=== PATIENT | male | born 1965 | race Caucasian/White ===

== ENCOUNTER 2019-04-14 19:17 | Emergency (ER) | payer BC ==
--- OUTSIDE RECORDS SUMMARY | 2019-04-14 19:33 | XMS REPORT | Continuity of Care Document ---
:1965 Author Organization Interface Problems Problem Status Onset Classification Date Comments Source Date Reported HARDWARE Active 08/12/20 [facility] INFECTION 16 [place] POST OP WOUND Active 07/12/20 [facility] INFECTION [place],[facility] Medical [place] POST OP FEVER Active 07/03/20 [facility] 16 [place] POSTOP WOUND Active 06/25/20 [facility] INFECTION, Medical SEPSIS, [facility] BACK PAIN Active 11/09/19 [facility] 01 [place] Final: Other 04/25/2016 [facility]o intervertebral and Spine disc degeneration, lumbar region Final: Other 04/25/2016 Ortho intervertebral and Spine disc displacement, lumbar region Depression Resolved Problem 08/17/2016 [facility] Hyperlipemia Resolved Problem 08/17/2016 [facility] Hypertension Resolved Problem 08/17/2016 [facility] Final: Illness, 08/17/2016 Ortho unspecified and Spine OTHER POSTOP Active [facility] INFECTION [place] FEVER NOS Active [facility] SEPSIS DUE TO Active [facility] ST[facility]HYLOCOCCUS [facility] ILLNESS, [facility] Medication Details Route Status Patient Ordering Order Source Instructions Provider Date methocarbamol 500 1,000 mg=2 tab, Active 08/14[facility] Ortho mg oral tablet PO, Q8H, 0 2015 and Refill(s) Spine gabapentin 300 MG 600 mg=2 cap, Active 08/14[facility] Ortho Oral Capsule PO, Q8H, 0 2015 and Refill(s) Spine Docusate Sodium 100 mg=1 cap, Active 08/14[facility] Ortho 100 MG Oral PO, BID, 0 2015 and Capsule Refill(s) Spine cyclobenzaprine 10 mg=1 tab, PO, Active 08/14[facility] Ortho 10 mg oral tablet TID, PRN as 2015 and needed for Spine muscle spasm, 0 Refill(s) DAPTOmycin 500 mg 600 mg, IV, Active 08/14[facility] Ortho intravenous Q24H, end date 2015 and injection to be determined Spine by CRP and operative findings. At least two weeks., X 14 day, # 1 bag, 0 Refill(s), other buPROPion 300 300 mg=1 tab, Active 08/14/ Ortho mg/24 hours oral PO, Daily, 0 2015 and extended release Refill(s) Spine tablet senna 8.6 mg oral 17.2 mg=2 tab, Active 08/14/ [facility] tablet PO, Bedtime, 0 2015 and Refill(s) Spine meropenem 1 g 1 gm, IV, Q8H, Active Ortho intravenous end date TBD 2016 and injection based on CRP Spine trend and operative findings. At least two additional weeks., X 14 day, # 1 bag, 0 Refill(s), other bisacodyl 5 mg 10 mg=2 tab, PO, Active Ortho oral enteric Daily, 0 2015 and coated tablet Refill(s) Spine bisacodyl 10 mg 10 mg=1 supp, Active 08/14/ Ortho rectal ME, Daily, PRN 2016 and suppository Constipation, 0 Spine Refill(s) POLYETHYLENE 17 gm, PO, Active Ortho GLYCOL 3350 Daily, 0 2015 and Refill(s) Spine aripiprazole 5 MG 2.5 mg=0.5 tab, Active [facility] Oral Tablet PO, Bedtime, 0 2015 and [Abilify] Refill(s) Spine Acetaminophen 325 2 tab, PO, Q4H, Active 08/14/ Ortho MG / Oxycodone PRN Pain Score 2016 and Hydrochloride 10 4-6, 0 Refill(s) Spine MG Oral Tablet [Percocet 10/325] hydromorphone 2 0.5 mg=0.25 mL, Active 08/14/ [facility] mg/mL injectable IVP, Q3H, PRN 2016 and solution Pain Score 7-10, Spine only if not controlled by orals, 0 Refill(s) hydromorphone 2 4 mg=2 tab, PO, Active 08/14/ [facility] mg oral tablet Q3H, PRN Pain 2016 and Score 7-10, 0 Spine Refill(s) ondansetron 2 4 mg=2 mL, IVP, Active 08/14/ [facility] mg/mL injectable Q6H, PRN as 2016 and solution needed for Spine nausea/vomiting, 0 Refill(s) Relistor 12 mg, Route: No Longer Ortho SUB-Q, Drug Active 2015 and form: INJ, Spine Daily, Dosing Weight 97, kg, Start date: 08/14/16 9:00:00 CDT, Duration: 30 day, Stop date: 09/12/16 9:00:00 DOG DAY CARE ATTENDANT heparin sodium, 5,000 unit, 1 No Longer Ortho porcine 2500 mL, Route: Active 2016 and UNT/ML Injectable SUB-Q, Drug Spine Solution form: INJ, Q8H, Dosing Weight 97, kg, Start date: 08/13/16 16:00:00 CDT, Duration: 30 day, Stop date: 09/12/16 8:00:00 CSTNotes: porcine heparin Dilaudid 4 mg, 2 tab, No Longer Ortho Route: PO, Drug Active 2015 and form: TAB, Q3H, Spine Dosing Weight 97, kg, PRN Pain Score 7-10, Start date: 08/13/16 9:32:00 CDT, Stop date: 08/16/16 9:31:00 CDTNotes: (Same as: Dilaudid) buPROPion 300 mg, 1 tab, No Longer Ortho Route: PO, Drug Active 2015 and form: ERTAB, Spine Daily, Start date: 08/13/16 9:00:00 CDT, Duration: 30 day, Stop date: 09/11/16 9:00:00 CSTNotes: (Same as: Wellbutrin XL) "Do Not Crush" Bupropion 150 mg, 1 tab, No Longer Ortho Route: PO, Drug Active 2015 and form: ERTAB, Spine Daily, Dosing Weight 97, kg, Start date: 08/13/16 9:00:00 CDT, Duration: 30 day, Stop date: 09/11/16 9:00:00 CSTNotes: (Same as: Wellbutrin XL) "Do Not Crush" vortioxetine vortioxetine, 20 No Longer Ortho mg, Route: PO, Active 2015 and Daily, 08/13/16 Spine 9:00:00 CDT, Duration: 30 day, Stop date: 09/11/16 9:00:00 DOG DAY CARE ATTENDANT Amlodipine 10 MG 1 tab, Route: Inactive Ortho / Olmesartan PO, Drug Form: 2016 and medoxomil 20 MG TAB, Dosing Spine Oral Tablet Weight 97, kg, Bedtime, Start date: 08/12/16 21:00:00 CDT, Duration: 30 day, Stop date: 09/10/16 21:00:00 DOG DAY CARE ATTENDANT Simvastatin 40 mg, 2 tab, No Longer Ortho Route: PO, Drug Active 2015 and form: TAB, Spine Bedtime, Dosing Weight 97, kg, Start date: 08/12/16 21:00:00 CDT, Duration: 30 day, Stop date: 09/10/16 21:00:00 CSTNotes: (Same as: Zocor) Clonazepam 1 mg, 2 tab, No Longer Ortho Route: PO, Drug Active 2015 and form: TAB, Spine Bedtime, Dosing Weight 97, kg, Start date: 08/12/16 21:00:00 CDT, Duration: 30 day, Stop date: 09/10/16 21:00:00 CSTNotes: (Same As: KlonoPIN) Norvasc 10 mg, 1 tab, Inactive Ortho Route: PO, Drug 2015 and form: TAB, Spine Bedtime, Start date: 08/12/16 21:00:00 CDT, Duration: 30 day, Stop date: 09/10/16 21:00:00 CSTNotes: (Same as: Norvasc) Abilify 2.5 mg, 1 tab, No Longer Ortho Route: PO, Drug Active 2015 and form: TAB, Spine Bedtime, Dosing Weight 97, kg, Start date: 08/12/16 21:00:00 CDT, Duration: 30 day, Stop date: 09/10/16 21:00:00 CSTNotes: (Same as: Abilify) Non-Formulary Drug. senna 8.6 mg oral 17.2 mg, 2 tab, No Longer Ortho tablet Route: PO, Drug Active 2015 and Form: TAB, Spine Dosing Weight 97, kg, Bedtime, Start date: 08/12/16 21:00:00 CDT, Duration: 30 day, Stop date: 09/10/16 21:00:00 CSTNotes: (Same as: Senokot) amlodipine-benaze amlodipine-benaz No Longer Ortho pril 10mg-20mg epril 10mg-20mg Active 2015 and capsule capsule, 1 cap, Spine Drug form: MISC, Route: PO, Bedtime, 08/12/16 21:00:00 CDT, Duration: 30 day, Stop date: 09/10/16 21:00:00 DOG DAY CARE ATTENDANT Benicar 20 mg, 1 tab, Inactive Ortho Route: PO, Drug 2015 and form: TAB, Spine Bedtime, Start date: 08/12/16 21:00:00 CDT, Duration: 30 day, Stop date: 09/10/16 21:00:00 DOG DAY CARE ATTENDANT Daptomycin 600 mg, Route: No Longer Ortho IVPB, Drug form: Active 2015 and INJ, Q24H, Spine Dosing Weight 97, kg, Start date: 08/12/16 20:00:00 CDT, Duration: 30 day, Stop date: 09/10/16 20:00:00 CSTNotes: (Same As: Jie) Restricted use to Infectious Disease Physicians. MEDICATION WASTE Product Size: 500 mg Product Wasted: ___ mg meropenem 1,000 mg, Route: No Longer Ortho IVPB, Drug form: Active 2015 and PDR/INJ, ABXQ8H, Spine Dosing Weight 97, kg, Start date: 08/12/16 17:00:00 CDT, Duration: 30 day, Stop date: 09/11/16 9:00:00 CSTNotes: (Same as: Merrem) . MEDICATION WASTE Product Size: 1000 mg Product Wasted: ___ mg Docusate Sodium 100 mg, 1 cap, No Longer Ortho 100 MG Oral Route: PO, Drug Active 2015 and Capsule form: CAP, BID, Spine Dosing Weight 97, kg, Start date: 08/12/16 17:00:00 CDT, Duration: 30 day, Stop date: 09/11/16 9:00:00 CSTNotes: (Same as: Colace) (Do Not Crush) Methocarbamol 1,000 mg, 2 tab, No Longer Ortho Route: PO, Drug Active 2015 and form: TAB, Q8H, Spine Dosing Weight 97, kg, Start date: 08/12/16 16:00:00 CDT, Duration: 30 day, Stop date: 09/11/16 8:00:00 CSTNotes: (Same as:Robaxin) gabapentin 300 MG 600 mg, 2 cap, No Longer Ortho Oral Capsule Route: PO, Drug Active 2015 and form: CAP, Q8H, Spine Dosing Weight 97, kg, Start date: 08/12/16 16:00:00 CDT, Stop date: 09/11/16 8:00:00 CSTNotes: (Same as: Neurontin) Miralax 17 gm, 1 pkt, No Longer Ortho Route: PO, Drug Active 2015 and form: PWDR, Spine Daily, Dosing Weight 97, kg, Priority: NOW, Start date: 08/12/16 14:10:00 CDT, Duration: 30 day, Stop date: 09/11/16 9:00:00 CSTNotes: Dissolve in 8 oz of water or juice. (Same as: Miralax) Dulcolax Laxative 10 mg, 2 tab, No Longer Ortho Route: PO, Drug Active 2015 and form: ECTAB, Spine Daily, Dosing Weight 97, kg, Start date: 08/12/16 14:10:00 CDT, Stop date: 09/11/16 9:00:00 CSTNotes: (Same As: Dulcolax, Correctol) (Do Not Crush) "Do Not Crush" Bisacodyl 10 mg, 1 supp, No Longer Ortho Route: ME, Drug Active 2015 and form: SUPP, Spine Daily, Dosing Weight 97, kg, PRN Constipation, Start date: 08/12/16 14:10:00 CDT, Duration: 30 day, Stop date: 09/11/16 14:09:00 CSTNotes: (Same As: Dulcolax, Bisco-Lax) sodium chloride 1,000 mL, Rate: No Longer Ortho 0.9% 1000 ml INJ 115 ml/hr, Active 2015 and 1,000 mL Infuse over: 8.7 Spine hr, Route: IV, Dosing Weight 97 kg, Total Volume: 1,000, Start date: 08/12/16 12:46:00 CDT, Duration: 30 day, Stop date: 09/11/16 12:45:00 DOG DAY CARE ATTENDANT Ondansetron 4 mg, 2 mL, No Longer Ortho Route: IVP, Drug Active 2015 and form: INJ, Q6H, Spine Dosing Weight 97, kg, PRN as needed for nausea/vomiting, Start date: 08/12/16 12:28:00 CDT, Duration: 30 day, Stop date: 09/11/16 12:27:00 CSTNotes: (Same as: Zofran) MEDICATION WASTE Product Size: 4 mg Product Wasted: ___ mg cyclobenzaprine 10 mg, 1 tab, No Longer Ortho Route: PO, Drug Active 2015 and form: TAB, TID, Spine Dosing Weight 97, kg, PRN as needed for muscle spasm, Start date: 08/12/16 12:27:00 CDT, Duration: 30 day, Stop date: 09/11/16 12:26:00 CSTNotes: (Same As: Flexeril) Bisacodyl 5 mg, 1 tab, Inactive Ortho Route: PO, Drug 2015 and form: ECTAB, Spine Q24H, Dosing Weight 97, kg, PRN Constipation, Start date: 08/12/16 12:27:00 CDT, Duration: 30 day, Stop date: 09/11/16 12:26:00 CSTNotes: (Same As: Dulcolax, Correctol) (Do Not Crush) "Do Not Crush" Acetaminophen 325 2 tab, Route: No Longer Ortho MG / Oxycodone PO, Drug Form: Active 2016 and Hydrochloride 10 TAB, Dosing Spine MG Oral Tablet Weight 97, kg, [Percocet 10/325] Q4H, PRN Pain Score 7-10, Start date: 08/12/16 12:26:00 CDT, Duration: 30 day, Stop date: 09/11/16 12:25:00 CSTNotes: Do not exceed 4gm/day of acetaminophen. (Same as: Percocet-10/325) Dilaudid 0.5 mg, 0.25 mL, No Longer Ortho Route: IVP, Drug Active 2016 and form: INJ, Q3H, Spine Dosing Weight 97, kg, PRN Pain Score 7-10, Start date: 08/12/16 11:47:00 CDT, Duration: 30 day, Stop date: 09/11/16 11:46:00 CSTNotes: Same as Dilaudid Acetaminophen 325 2 tab, Route: Inactive Ortho MG / Hydrocodone PO, Drug Form: 2016 and Bitartrate 10 MG TAB, Dosing Spine Oral Tablet Weight 97, kg, [[place] 10/325] Q6H, PRN Pain Score 7-10, Start date: 08/12/16 11:46:00 CDT, Duration: 30 day, Stop date: 09/11/16 11:45:00 CSTNotes: Do not exceed 4gm/day of acetaminophen. (Same as: [place] 325/10) Trintellix 20 mg 20 mg=1 tab, PO, Active Ortho oral tablet Daily, 0 2015 and Refill(s) Spine cyclobenzaprine 10 mg=1 tab, PO, No Longer Ortho 10 mg oral tablet BID, Q Am and Q Active 2015 and HS, # 30 day, 0 Spine Refill(s) Acetaminophen 325 1 to 2 tabs, PO, No Longer Ortho MG / Oxycodone Q6H, PRN Pain Active 2015 and Hydrochloride 10 Score 1-3, # 20 Spine MG Oral Tablet tab, 0 Refill(s) [Percocet 10/325] Daptomycin 500 mg, Route: No Longer Ortho IVPB, Drug form: Active 2015 and INJ, Q24H, Spine Dosing Weight 97, kg, Start date: 07/14/16 12:00:00 CDT, Stop date: 08/12/16 13:00:00 CDTNotes: (Same As: Jie) Restricted use to Infectious Disease Physicians. MEDICATION WASTE Product Size: 500 mg Product Wasted: ___ mg Pravastatin 20 mg, 1 tab, No Longer Ortho Route: PO, Drug Active 2015 and form: TAB, Spine Bedtime, Dosing Weight 97, kg, Start date: 07/13/16 21:00:00 CDT, Duration: 30 day, Stop date: 08/11/16 21:00:00 CDTNotes: (Same as: Pravachol) Ibuprofen 400 MG 800 mg, 2 tab, No Longer Ortho Oral Tablet Route: PO, Drug Active 2015 and form: TAB, Q8H, Spine Dosing Weight 97, kg, Start date: 07/13/16 16:00:00 CDT, Duration: 30 day, Stop date: 08/12/16 8:00:00 CDTNotes: (Same as: Motrin) "Do Not Crush" Give with food. gabapentin 300 MG 300 mg, 1 cap, No Longer Ortho Oral Capsule Route: PO, Drug Active 2015 and form: CAP, Q8H, Spine Dosing Weight 97, kg, Start date: 07/13/16 16:00:00 CDT, Duration: 30 day, Stop date: 08/12/16 8:00:00 CDTNotes: (Same as: Neurontin) Benicar 20 mg, 1 tab, No Longer Ortho Route: PO, Drug Active 2015 and form: TAB, Spine Daily, Start date: 07/13/16 9:00:00 CDT, Duration: 30 day, Stop date: 08/11/16 9:00:00 CDT Norvasc 10 mg, 1 tab, No Longer Ortho Route: PO, Drug Active 2015 and form: TAB, Spine Daily, Start date: 07/13/16 9:00:00 CDT, Duration: 30 day, Stop date: 08/11/16 9:00:00 CDTNotes: (Same as: Norvasc) Budeprion 150 mg, 1 tab, No Longer Ortho Route: PO, Drug Active 2015 and form: ERTAB, Spine Daily, Dosing Weight 97, kg, Start date: 07/13/16 9:00:00 CDT, Duration: 30 day, Stop date: 08/11/16 9:00:00 CDTNotes: (Same as: Wellbutrin XL) "Do Not Crush" Amlodipine 10 MG 1 tab, Route: No Longer Ortho / Olmesartan PO, Dosing Active 2015 and medoxomil 20 MG Weight 97, kg, Spine Oral Tablet Daily, Start date: 07/13/16 9:00:00 CDT, Duration: 30 day, Stop date: 08/11/16 9:00:00 CDT buPROPion 24 hour 150 mg, 1 tab, No Longer [place] extended release Route: PO, Drug Active 2015 Medical form: ERTAB, Center Daily, Dosing Weight 97.727, kg, Start date: 07/13/16 9:00:00 CDT, Duration: 30 day, Stop date: 08/11/16 9:00:00 CDTNotes: (Same as: Wellbutrin XL) "Do Not Crush" Abilify 2.5 mg, 0.5 tab, No Longer [place] Route: PO, Drug Active 2015 Medical form: TAB, Center Daily, Dosing Weight 97.727, kg, Start date: 07/13/16 9:00:00 CDT, Duration: 30 day, Stop date: 08/11/16 9:00:00 CDTNotes: Non-Formulary Drug. (Same as: Abilify) Clonazepam 1 mg, 2 tab, No Longer Ortho Route: PO, Drug Active 2015 and form: TAB, Spine Bedtime, Dosing Weight 97, kg, Start date: 07/12/16 21:00:00 CDT, Duration: 30 day, Stop date: 08/10/16 21:00:00 CDTNotes: (Same As: KlonoPIN) Abilify 2.5 mg, 1 tab, No Longer [facility] Route: PO, Drug Active 2015 and form: TAB, Spine Bedtime, Dosing Weight 97, kg, Start date: 07/12/16 21:00:00 CDT, Duration: 30 day, Stop date: 08/10/16 21:00:00 CDTNotes: (Same as: Abilify) Non-Formulary Drug. Vancomycin 1,000 mg, Route: No Longer Ortho IVPB, Q8H, Active 2015 and Dosing Weight Spine 97, kg, Start date: 07/12/16 21:00:00 CDT, Duration: 30 day, Stop date: 08/11/16 13:00:00 CDTNotes: TIME CRITICAL MEDICATION (Same As: Vancocin) Infusion rate 2001 mg: infuse over 2.5 hours MEDICATION WASTE Product Size: 1000 mg Product Wasted: ___ mg meropenem 1,000 mg, Route: No Longer Ortho IVPB, Q8H, Active 2015 and Dosing Weight Spine 97, kg, CrCl >50, Extended infusion, infuse over 3 hours, Start date: 07/12/16 19:30:00 CDT, Duration: 30 day, Stop date: 08/11/16 11:30:00 CDTNotes: (Same as: Merrem) . MEDICATION WASTE Product Size: 1000 mg Product Wasted: ___ mg Docusate 100 mg, 1 cap, No Longer Ortho Route: PO, Drug Active 2015 and form: CAP, BID, Spine Dosing Weight 97.727, kg, Start date: 07/12/16 17:00:00 CDT, Duration: 30 day, Stop date: 08/11/16 9:00:00 CDTNotes: (Same as: Colace) (Do Not Crush) Methocarbamol 1,000 mg, 2 tab, No Longer Ortho Route: PO, Drug Active 2015 and form: TAB, TID, Spine Dosing Weight 97, kg, Start date: 07/12/16 17:00:00 CDT, Duration: 30 day, Stop date: 08/11/16 13:00:00 CDTNotes: (Same as:Robaxin) Aluminum 30 mL, Route: No Longer Ortho Hydroxide / PO, Drug Form: Active 2016 and Magnesium SUSP, Dosing Spine Hydroxide / Weight 97, kg, Simethicone QID, PRN Indigestion, Start date: 07/12/16 16:03:00 CDT, Duration: 30 day, Stop date: 08/11/16 16:02:00 CDTNotes: (aluminum hydroxide-magnes ium hyd- simethicone [id number]/5ml 30 ml ud SORIN) Bisacodyl 5 mg, 1 tab, No Longer Ortho Route: PO, Drug Active 2015 and form: ECTAB, Spine Q6H, Dosing Weight 97, kg, PRN Constipation, Start date: 07/12/16 16:03:00 CDT, Duration: 30 day, Stop date: 08/11/16 16:02:00 CDTNotes: (Same As: Dulcolax, Correctol) (Do Not Crush) "Do Not Crush" Benadryl 25 mg, 0.5 mL, No Longer Ortho Route: IVP, Drug Active 2015 and form: INJ, ONCE, Spine Dosing Weight 97, kg, PRN Itching, Start date: 07/12/16 16:03:00 CDTNotes: (Same as: Benadryl) Temazepam 15 mg, 1 cap, No Longer Ortho Route: PO, Drug Active 2015 and form: CAP, Spine Bedtime, Dosing Weight 97, kg, PRN Sleep, Start date: 07/12/16 16:01:00 CDT, Duration: 30 day, Stop date: 08/11/16 16:00:00 CDTNotes: (Same As: Restoril) Sodium Chloride 10 mL, Route: No Longer Ortho 0.154 MEQ/ML IVP, Drug Form: Active 2016 and Inhalant Solution INJ, Dosing Spine Weight 97, kg, PRN, PRN Line Flush, Start date: 07/12/16 16:01:00 CDT, Duration: 30 day, Stop date: 08/11/16 16:00:00 CDTNotes: Same as: BD Posiflush Sterile Promethazine 12.5 mg, 0.5 mL, No Longer Ortho Route: IVPB, Active 2015 and Drug form: INJ, Spine Q4H, Dosing Weight 97, kg, PRN Nausea & Vomiting, Start date: 07/12/16 16:00:00 CDT, Duration: 30 day, Stop date: 08/11/16 15:59:00 CDTNotes: Do not give IV push. (Same as: Phenergan) Ondansetron 4 mg, 1 tab, No Longer Ortho Route: PO, Drug Active 2015 and form: TABDIS, Spine Q8H, Dosing Weight 97, kg, PRN Nausea, Start date: 07/12/16 16:00:00 CDT, Duration: 30 day, Stop date: 08/11/16 15:59:00 CDTNotes: (Same as: Zofran ODT) Naloxone 0.4 mg, 1 mL, No Longer Ortho Route: IVP, Drug Active 2015 and form: INJ, PRN, Spine Dosing Weight 97, kg, PRN Narcotic Reversal, Start date: 07/12/16 15:59:00 CDT, Duration: 30 day, Stop date: 08/11/16 15:58:00 CDTNotes: Same as Narcan Acetaminophen 325 1 tab, Route: No Longer Ortho MG / Hydrocodone PO, Drug Form: Active 2016 and Bitartrate 5 MG TAB, Dosing Spine Oral Tablet Weight 97.727, kg, Q4H, PRN Pain Score 4-6, Start date: 07/12/16 15:47:00 CDT, Duration: 30 day, Stop date: 08/11/16 15:46:00 CDTNotes: (Same as: [place] 325/5) Do not exceed 4gm/day of acetaminophen. Acetaminophen 650 mg, 2 tab, No Longer Ortho Route: PO, Drug Active 2015 and form: TAB, Q4H, Spine Dosing Weight 97.727, kg, PRN Pain 1-3/Temp > 100.4 F, Start date: 07/12/16 15:47:00 CDT, Duration: 30 day, Stop date: 08/11/16 15:46:00 CDTNotes: Do not exceed 4 gm/day. (Same as: Tylenol) Morphine 2 mg, 0.2 mL, No Longer Ortho Route: IVP, Drug Active 2015 and form: INJ, Q4H, Spine Dosing Weight 97.727, kg, PRN Pain Score 7-10, Start date: 07/12/16 15:47:00 CDT, Duration: 30 day, Stop date: 08/11/16 15:46:00 CDTNotes: (Same as:MORPhine Sulfate) Ondansetron 4 mg, 2 mL, No Longer Ortho Route: IVP, Drug Active 2015 and form: INJ, Q6H, Spine Dosing Weight 97.727, kg, PRN Nausea & Vomiting, Start date: 07/12/16 15:47:00 CDT, Duration: 30 day, Stop date: 08/11/16 15:46:00 CDTNotes: (Same as: Zofran) MEDICATION WASTE Product Size: 4 mg Product Wasted: ___ mg vancomycin 1 gm, Route: No Longer [place] IVPB, Drug form: Active 2015 Medical INJ, ABXQ8H, Center Start date: 07/11/16 22:00:00 CDT, Duration: 30 day, Stop date: 08/10/16 14:00:00 CDTNotes: TIME CRITICAL MEDICATION (Same As: Vancocin) Infusion rate 2001 mg: infuse over 2.5 hours MEDICATION WASTE Product Size: 1000 mg Product Wasted: ___ mg Morphine 4 mg, 1 mL, No Longer [place] Route: IVP, Drug Active 2015 Medical form: INJ, ONCE, Center Dosing Weight 97.727, kg, Start date: 07/09/16 23:56:00 CDT, Stop date: 07/09/16 23:56:00 CDTNotes: (Same as:MORPhine Sulfate) Hydralazine 10 mg, 1 tab, No Longer [place] Hydrochloride 10 Route: PO, Drug Active 2015 Medical MG Oral Tablet form: TAB, Q6H, Center Dosing Weight 97.727, kg, PRN Hypertension, Start date: 07/09/16 15:23:00 CDT, Duration: 30 day, Stop date: 08/08/16 15:22:00 CDTNotes: (Same as: Apresoline) May interfere w/enteral feedings. Take With Food remove patch 1 patch, Route: No Longer [place] TOP, Bedtime, Active 2015 Medical Drug form: Center ERFILM, Start date: 07/08/16 21:00:00 CDT, Duration: 30 day, Stop date: 08/06/16 21:00:00 CDTNotes: Remove patch 12 hours after application each day. senna 8.6 mg oral 17.2 mg, 2 tab, No Longer [place] tablet Route: PO, Drug Active 2015 Medical Form: TAB, Center Dosing Weight 102.273, kg, Bedtime, Start date: 07/08/16 21:00:00 CDT, Duration: 30 day, Stop date: 08/06/16 21:00:00 CDTNotes: (Same as: Senokot) Simvastatin 40 mg, 1 tab, No Longer [place] Route: PO, Drug Active 2015 Medical form: TAB, Center Bedtime, Dosing Weight 102.273, kg, Start date: 07/08/16 21:00:00 CDT, Duration: 30 day, Stop date: 08/06/16 21:00:00 CDTNotes: (Same as: Zocor) Amlodipine 10 MG 1 tab, Route: Inactive [facility] / Olmesartan PO, Drug Form: 2016 Medical medoxomil 20 MG TAB, Dosing Center Oral Tablet Weight 102.273, kg, Bedtime, Start date: 07/08/16 21:00:00 CDT, Duration: 30 day, Stop date: 08/06/16 21:00:00 CDT Acetaminophen 325 2 tab, Route: No Longer [facility] MG / Oxycodone PO, Drug Form: Active 2015 Medical Hydrochloride 5 TAB, Dosing Center MG Oral Tablet Weight 97.727, [Percocet 5/325] kg, Q6H, PRN Pain Score 7-10, Start date: 07/08/16 15:59:00 CDT, Duration: 30 day, Stop date: 08/07/16 15:58:00 CDTNotes: Do not exceed 4gm/day of acetaminophen. (Same as: Percocet-5/325) meropenem 1,000 mg, Route: No Longer [facility] IVPB, Drug form: Active 2015 Medical PDR/INJ, ABXQ8H, Center Dosing Weight 97.727, kg, CrCl >50, Extended infusion, infuse over 3 hours, Priority: NOW, Start date: 07/08/16 11:01:00 CDT, Duration: 30 day, Stop date: 08/07/16 3:30:00 CDTNotes: (Same as: Merrem) . MEDICATION WASTE Product Size: 1000 mg Product Wasted: _0_ mg Benicar 20 mg, 1 tab, No Longer [facility] Route: PO, Drug Active 2015 Medical form: TAB, Center Daily, Start date: 07/08/16 9:00:00 CDT, Duration: 30 day, Stop date: 08/06/16 9:00:00 CDT Norvasc 10 mg, 1 tab, No Longer [place] Route: PO, Drug Active 2015 Medical form: TAB, Center Daily, Start date: 07/08/16 9:00:00 CDT, Duration: 30 day, Stop date: 08/06/16 9:00:00 CDTNotes: (Same as: Norvasc) Lidocaine 1 patch, Route: No Longer [place] Hydrochloride TOP, Q24H, Drug Active 2015 Medical 0.05 MG/MG form: FILM, Center Transdermal Patch Start date: [Lidoderm] 07/08/16 9:00:00 CDT, Duration: 30 day, Stop date: 08/06/16 9:00:00 CDTNotes: Apply only once for up to 12 hours in a 24-hour period (12 hours on and 12 hours off). (Same as: Lidoderm) "Remove old patch before application of new patch" POLYETHYLENE 17 gm, 1 pkt, No Longer [place] [id number] Route: PO, Drug Active 2015 Medical form: PWDR, Center Daily, Dosing Weight 102.273, kg, Start date: 07/08/16 9:00:00 CDT, Duration: 30 day, Stop date: 08/06/16 9:00:00 CDTNotes: Dissolve in 8 oz of water or juice. (Same as: Miralax) Docusate 100 mg, 1 cap, No Longer [place] Route: PO, Drug Active 2015 Medical form: CAP, BID, Center Dosing Weight 102.273, kg, Start date: 07/08/16 9:00:00 CDT, Duration: 30 day, Stop date: 08/06/16 17:00:00 CDTNotes: (Same as: Colace) (Do Not Crush) Brintellix Brintellix, 20 No Longer [place] mg, Route: PO, Active 2015 Medical Daily, 07/08/16 [place] 9:00:00 CDT, Duration: 30 day, Stop date: 08/06/16 9:00:00 CDT Bupropion 150 mg, 1 tab, No Longer [facility] Route: PO, Drug Active 2015 Medical form: ERTAB, Center Daily, Dosing Weight 102.273, kg, Start date: 07/08/16 9:00:00 CDT, Duration: 30 day, Stop date: 08/06/16 9:00:00 CDTNotes: (Same as: Wellbutrin XL) "Do Not Crush" Abilify 2.5 mg, Route: No Longer [facility] PO, Drug form: Active 2016 Medical TAB, Daily, Center Dosing Weight 102.273, kg, Start date: 07/08/16 9:00:00 CDT, Duration: 30 day, Stop date: 08/06/16 9:00:00 CDT Saline Flush 0.9% 10 mL, Route: No Longer [facility] IVP, Drug Form: Active 2015 Medical INJ, Dosing Center Weight 97.727, kg, Q8H, Start date: 07/08/16 8:00:00 CDT, Duration: 30 day, Stop date: 08/07/16 0:00:00 CDTNotes: (Same as: BD Posiflush) gabapentin 300 MG 300 mg, 1 cap, No Longer [facility] Oral Capsule Route: PO, Drug Active 2015 Medical form: CAP, Q8H, Center Dosing Weight 102.273, kg, Start date: 07/08/16 8:00:00 CDT, Duration: 30 day, Stop date: 08/07/16 0:00:00 CDTNotes: (Same as: Neurontin) Lidocaine 50 mg, 5 mL, No Longer [facility] Hydrochloride 10 Route: Active 2015 Medical MG/ML Injectable INTRADERM, Drug Center Solution Form: INJ, Dosing Weight 97.727, kg, ONCALL, Start date: 07/08/16 6:00:00 CDT, Duration: 30 day, Stop date: 08/07/16 5:59:00 CDTNotes: (Same as: Xylocaine) Saline Flush 0.9% 10 mL, Route: No Longer [facility] IVP, Drug Form: Active 2016 Medical INJ, Dosing Center Weight 97.727, kg, PRN, PRN Line Flush, Start date: 07/08/16 5:15:00 CDT, Duration: 30 day, Stop date: 08/07/16 5:14:00 CDTNotes: (Same as: BD Posiflush) Ceftazidime 2 gm, Route: Inactive [place] IVPB, Drug form: 2016 Medical PDR/INJ, ABXQ8H, Center Dosing Weight 102.273, kg, Start date: 07/08/16 5:00:00 CDT, Duration: 30 day, Stop date: 08/06/16 21:00:00 CDTNotes: Same as: Fortaz MEDICATION WASTE Product Size: 2000 mg Product Wasted: _0_ mg Vancomycin 1,250 mg, Route: No Longer [facility] IVPB, Drug form: Active 2015 Medical INJ, ABXQ8H, Center Dosing Weight 102.273, kg, Start date: 07/08/16 5:00:00 CDT, Duration: 30 day, Stop date: 08/06/16 22:30:00 CDTNotes: TIME CRITICAL MEDICATION (Same As: Vancocin) Infusion rate 2001 mg: infuse over 2.5 hours MEDICATION WASTE Product Size: 1000 mg Product Wasted: ___ mg Promethazine 12.5 mg, 0.5 mL, No Longer [facility] Route: IVPB, Active 2015 Medical Drug form: INJ, Center Q4H, Dosing Weight 102.273, kg, PRN as needed for nausea/vomiting, Start date: 07/08/16 4:17:00 CDT, Duration: 30 day, Stop date: 08/07/16 4:16:00 CDTNotes: Do not give IV push. (Same as: Phenergan) Methocarbamol 1,000 mg, 2 tab, No Longer [facility] Route: PO, Drug Active 2015 Medical form: TAB, Q8H, Center Dosing Weight 102.273, kg, PRN Muscle Spasms, Start date: 07/08/16 4:07:00 CDT, Duration: 30 day, Stop date: 08/07/16 4:06:00 CDTNotes: (Same as:Robaxin) Bisacodyl 10 mg, 1 supp, No Longer [facility] Route: ME, Drug Active 2015 Medical form: SUPP, Center Daily, Dosing Weight 102.273, kg, PRN Constipation, Start date: 07/08/16 4:07:00 CDT, Duration: 30 day, Stop date: 08/07/16 4:06:00 CDTNotes: (Same As: Dulcolax, Bisco-Lax) Al hydroxide/Mg 30 mL, Route: No Longer [place] hydroxide/simethi PO, Drug Form: Active 2015 Medical cone 200 mg-200 SUSP, Dosing Center mg-20 mg/5 mL Weight 102.273, oral suspension kg, Q4H, PRN Indigestion, Start date: 07/08/16 4:07:00 CDT, Duration: 30 day, Stop date: 08/07/16 4:06:00 CDTNotes: (aluminum hydroxide-magnes ium hyd-simethicone [phone]/5ml 30 ml ud SORIN) Diphenhydramine 12.5 mg, 5 mL, No Longer [place] Route: PO, Drug Active 2015 Medical form: LIQ, Q6H, Center Dosing Weight 102.273, kg, PRN Itching, Start date: 07/08/16 4:07:00 CDT, Duration: 30 day, Stop date: 08/07/16 4:06:00 CDTNotes: (Same as: Benadryl) Melatonin 3 mg, 1 tab, No Longer [place] Route: PO, Drug Active 2015 Medical form: TAB, Center Bedtime, Dosing Weight 102.273, kg, PRN Insomnia, Start date: 07/08/16 4:07:00 CDT, Duration: 30 day, Stop date: 08/07/16 4:06:00 CDTNotes: (Same as: Melatonin) Saline Flush 0.9% 10 ml, Route: No Longer [facility] IVP, Drug Form: Active 2015 Medical INJ, Dosing Center Weight 102.273, kg, PRN, PRN Line Flush, Start date: 07/08/16 4:07:00 CDT, Duration: 30 day, Stop date: 08/07/16 4:06:00 CDTNotes: (Same as: BD Posiflush) Ondansetron 4 mg, 2 mL, No Longer [facility] Route: IVP, Drug Active 2015 Medical form: INJ, Q6H, Center Dosing Weight 102.273, kg, PRN Nausea & Vomiting, Start date: 07/08/16 4:07:00 CDT, Duration: 30 day, Stop date: 08/07/16 4:06:00 CDTNotes: (Same as: Marlee) MEDICATION WASTE Product Size: 4 mg Product Wasted: 0___ mg Acetaminophen 650 mg, 2 tab, No Longer [place] Route: PO, Drug Active 2015 Medical form: TAB, Q4H, Center Dosing Weight 102.273, kg, PRN Pain 1-3/Temp > 100.4 F, Start date: 07/08/16 4:07:00 CDT, Duration: 30 day, Stop date: 08/07/16 4:06:00 CDTNotes: Do not exceed 4 gm/day. (Same as: Tylenol) Sodium Chloride 1,000 mL, Rate: No Longer [place] 0.154 MEQ/ML 125 ml/hr, Active 2015 Medical Injectable Infuse over: 8 Center Solution hr, Route: IV, Dosing Weight 102.273 kg, Total Volume: 1,000, Start date: 07/08/16 4:07:00 CDT, Duration: 30 day, Stop date: 08/07/16 4:06:00 CDT Acetaminophen 325 2 tab, PO, Q4H, On Hold [facility] MG / Hydrocodone PRN Pain Score 2016 and Bitartrate 10 MG 4-6, 0 Refill(s) Spine Oral Tablet acetaminophen 500 500 mg=1 tab, On Hold [facility] mg oral tablet PO, Q4H, PRN For 2016 and Temp > 100.4 F, Spine 0 Refill(s) cefTAZidime 1 g 1 gm, IV, Q8H, X [facility] injection 10 day, # 10 ea, 2016 and 0 Refill(s), Spine other vancomycin 1.5 1.5 hi=054 mL, On Hold [facility] g/250 mL-NaCl IVPB, Q12H, 0 2015 and 0.9% intravenous Refill(s) Spine solution temazepam 15 mg 15 mg=1 cap, PO, On Hold [facility] oral capsule Bedtime, PRN 2016 and Insomnia, 0 Spine Refill(s) Sodium Chloride 0.09 gm=10 mL, On Hold [facility] 0.154 MEQ/ML IVP, PRN, PRN 2015 and Inhalant Solution Line Flush, 0 Spine Refill(s) senna 8.6 mg oral 17.2 mg=2 tab, On Hold [facility] tablet PO, Bedtime, 0 2015 and Refill(s) Spine Promethazine 12.5 mg=0.5 mL, On Hold [facility] Hydrochloride 25 IVPB, Q4H, PRN 2015 and MG/ML Injectable Nausea & Spine Solution Vomiting, 0 Refill(s) ondansetron 2 4 mg=2 mL, IVP, On Hold [facility] mg/mL injectable Q6H, PRN Nausea 2015 and solution & Vomiting, 0 Spine Refill(s) naloxone 0.4 0.04 mg=0.1 mL, On Hold [facility] mg/mL injectable IVP, Q2MIN, PRN 2015 and solution Narcotic Spine Reversal, 0 Refill(s) methocarbamol 500 1,000 mg=2 tab, On Hold [facility] mg oral tablet PO, Q8H, 0 2015 and Refill(s) Spine magnesium 2.4 gm=30 mL, On Hold [facility] hydroxide 8% oral PO, Daily, 0 2015 and suspension Refill(s) Spine gabapentin 300 MG 300 mg=1 cap, On Hold [facility] Oral Capsule PO, Q8H, 0 2015 and Refill(s) Spine Ibuprofen 400 MG 800 mg=2 tab, On Hold [facility] Oral Tablet PO, Q8H, 0 2015 and Refill(s) Spine Docusate Sodium 100 mg=1 cap, On Hold [facility] 100 MG Oral PO, BID, 0 2015 and Capsule Refill(s) Spine diphenhydrAMINE 12.5 mg=5 mL, On Hold [facility] 12.5 mg/5 mL oral PO, Q6H, PRN 2015 and liquid Itching, 0 Spine Refill(s) diphenhydrAMINE 25 mg=1 cap, PO, On Hold [facility] 25 mg oral Bedtime, PRN 2016 and capsule Insomnia, 0 Spine Refill(s) bisacodyl 5 mg 5 mg=1 tab, PO, On Hold [facility] oral enteric Q24H, PRN 2015 and coated tablet Constipation, 0 Spine Refill(s) Aluminum 15 mL, PO, Q4H, On Hold [facility] Hydroxide / PRN as needed 2015 and Magnesium for indigestion, Spine Hydroxide / 0 Refill(s) Simethicone sodium chloride 1,000 mL, Rate: No Longer [facility] 0.9% 1000 ml INJ 125 ml/hr, Active 2015 and 1,000 mL Infuse over: 8 Spine hr, Route: IV, Dosing Weight 102.273 kg, Total Volume: 1,000, Start date: 07/07/16 22:51:00 CDT, Duration: 30 day, Stop date: 08/06/16 22:50:00 CDT Oxycodone 5 mg, 1 tab, Inactive [facility] Hydrochloride 5 Route: PO, Drug 2015 and MG Oral Tablet form: TAB, ONCE, Spine Dosing Weight 102.273, kg, Start date: 07/07/16 12:56:00 CDT, Stop date: 07/07/16 12:56:00 CDTNotes: (Same as: Roxicodone) Ceftazidime 1 gm, Route: No Longer [facility] IVPB, Drug form: Active 2015 and PDR/INJ, ABXQ8H, Spine Dosing Weight 102.273, kg, Start date: 07/07/16 12:00:00 CDT, Duration: 30 day, Stop date: 08/06/16 4:00:00 CDTNotes: (Same as: Fortaz) Amlodipine 10 MG 1 tab, Route: Inactive [facility] / Olmesartan PO, Drug Form: 2015 and medoxomil 20 MG TAB, Dosing Spine Oral Tablet Weight 102.273, kg, Bedtime, Start date: 07/06/16 21:00:00 CDT, Duration: 30 day, Stop date: 08/04/16 21:00:00 CDT Benicar 20 mg, 1 tab, No Longer [facility] Route: PO, Drug Active 2015 and form: TAB, Spine Bedtime, Start date: 07/06/16 21:00:00 CDT, Duration: 30 day, Stop date: 08/04/16 21:00:00 CDT Norvasc 10 mg, 1 tab, No Longer [facility] Route: PO, Drug Active 2015 and form: TAB, Spine Bedtime, Start date: 07/06/16 21:00:00 CDT, Duration: 30 day, Stop date: 08/04/16 21:00:00 CDTNotes: (Same as: Norvasc) vancomycin 1.5 gm, 250 mL, No Longer [facility] Route: IVPB, Active 2015 and Drug form: INJ, Spine Q12H, Start date: 07/05/16 21:00:00 CDT, Duration: 30 day, Stop date: 08/04/16 9:00:00 CDTNotes: TIME CRITICAL MEDICATION Same as: Vancocin-NS (premixed) Infusion rate 2001 mg: infuse over 2.5 hours Milk of Magnesia 30 ml, Route: No Longer [facility] PO, Drug Form: Active 2015 and SUSP, Dosing Spine Weight 102.273, kg, Daily, until BM, Start date: 07/05/16 9:00:00 CDT, Duration: 30 day, Stop date: 08/03/16 9:00:00 CDTNotes: (Same as: Milk of Magnesia, MOM) vancomycin 1.5 gm, Route: Inactive [facility] IVPB, Drug form: 2016 and INJ, Q12H, Start Spine date: 07/05/16 9:00:00 CDT, Duration: 30 day, Stop date: 08/03/16 21:00:00 CDT KlonoPIN 1 mg, 2 tab, No Longer [facility] Route: PO, Drug Active 2015 and form: TAB, Spine Bedtime, Dosing Weight 102.273, kg, Start date: 07/04/16 23:00:00 CDT, Duration: 30 day, Stop date: 08/03/16 21:00:00 CDTNotes: (Same As: KlonoPIN) vancomycin 1.5 gm, 250 mL, No Longer [facility] Route: IVPB, Active 2015 and Drug form: INJ, Spine ABXQ8H, Start date: 07/04/16 21:00:00 CDT, Duration: 30 day, Stop date: 08/03/16 13:00:00 CDTNotes: TIME CRITICAL MEDICATION Same as: Vancocin-NS (premixed) Infusion rate 2001 mg: infuse over 2.5 hours sennosides, RESIDENTIAL 17.2 mg, 2 tab, No Longer [facility] Route: PO, Drug Active 2015 and Form: TAB, Spine Dosing Weight 102.273, kg, Bedtime, Start date: 07/04/16 21:00:00 CDT, Duration: 30 day, Stop date: 08/02/16 21:00:00 CDTNotes: (Same as: Senokot) Clonazepam 1 mg, 2 tab, Inactive [facility] Route: PO, Drug 2015 and form: TAB, Spine Bedtime, Dosing Weight 102.273, kg, Start date: 07/04/16 21:00:00 CDT, Duration: 30 day, Stop date: 08/02/16 21:00:00 CDTNotes: (Same As: KlonoPIN) Simvastatin 40 mg, 2 tab, No Longer [facility] Route: PO, Drug Active 2015 and form: TAB, Spine Bedtime, Dosing Weight 102.273, kg, Start date: 07/04/16 21:00:00 CDT, Duration: 30 day, Stop date: 08/02/16 21:00:00 CDTNotes: (Same as: Zocor) Abilify 2.5 mg, 0.5 tab, No Longer [facility] Route: PO, Drug Active 2015 and form: TAB, Spine Bedtime, Dosing Weight 102.273, kg, Start date: 07/04/16 21:00:00 CDT, Stop date: 08/02/16 21:00:00 CDTNotes: Non-Formulary Drug. (Same as: Abilify) Docusate Sodium 100 mg, 1 cap, No Longer Orth[facility] 100 MG Oral Route: PO, Drug Active 2015 and Capsule form: CAP, BID, Spine Dosing Weight 102.273, kg, Start date: 07/04/16 17:00:00 CDT, Duration: 30 day, Stop date: 08/03/16 9:00:00 CDTNotes: (Same as: Colace) (Do Not Crush) Zanaflex 2 mg, 0.5 tab, No Longer [facility] Route: PO, Drug Active 2015 and form: TAB, Q8H, Spine Dosing Weight 102.273, kg, Start date: 07/04/16 16:00:00 CDT, Duration: 30 day, Stop date: 08/03/16 8:00:00 CDTNotes: (Same As: Zanaflex) Dexamethasone 10 mg, Route: Inactive [facility] IVP, Q8H, Dosing 2015 and Weight 102.273, Spine kg, Start date: 07/04/16 16:00:00 CDT, Duration: 30 day, Stop date: 08/03/16 8:00:00 CDT Morphine 30 mg, 30 mL, No Longer [facility] Route: IV, Active 2015 and Initial Loading Spine Dose: 2 mg, [employer] Dose: 1 mg, [employer] Lockout: 10 minutes, Continuous Basal Rate: 0 mg, 4 Hour Limit (In MG): 30, Drug Form: INJ, Continuous, Start date: 07/04/16 14:00:00 CDT, Duration: 30 day, Stop date: 08/03/16...Notes : Dose: Delay: Basal rate: 4hr limit: (Same as:Bindu) Trazodone 25 mg, 0.5 tab, No Longer [facility] Route: PO, Drug Active 2015 and form: TAB, Spine Bedtime, Dosing Weight 102.273, kg, PRN Insomnia, Start date: 07/04/16 13:57:00 CDT, Duration: 30 day, Stop date: 08/03/16 13:56:00 CDTNotes: (Same As: Desyrel) Valium 5 mg, 1 mL, No Longer [facility] Route: IVP, Drug Active 2015 and form: INJ, Q8H, Spine Dosing Weight 102.273, kg, PRN Spasm, Start date: 07/04/16 13:57:00 CDT, Duration: 30 day, Stop date: 08/03/16 13:56:00 CDTNotes: (Same as: Valium) WASTE: F/P - Black; E - White/Blue Diphenhydramine 12.5 mg, 5 mL, No Longer [facility] Route: PO, Drug Active 2015 and form: LIQ, Q6H, Spine Dosing Weight 102.273, kg, PRN Itching, Start date: 07/04/16 13:57:00 CDT, Duration: 30 day, Stop date: 08/03/16 13:56:00 CDTNotes: (Same as: Benadryl) Al hydroxide/Mg 15 ml, Route: No Longer [facility] hydroxide/simethi PO, Drug Form: Active 2016 and cone 200 mg-200 SUSP, Dosing Spine mg-20 mg/5 mL Weight 102.273, oral suspension kg, Q4H, PRN Indigestion, Start date: 07/04/16 13:57:00 CDT, Duration: 30 day, Stop date: 08/03/16 13:56:00 CDTNotes: (aluminum hydroxide-magnes ium hyd- simethicone [phone]/5ml 30 ml ud SORIN) Dulcolax Laxative 5 mg, 1 tab, No Longer [facility] Route: PO, Drug Active 2015 and form: ECTAB, Spine Q24H, Dosing Weight 102.273, kg, PRN Constipation, Start date: 07/04/16 13:57:00 CDT, Duration: 30 day, Stop date: 08/03/16 13:56:00 CDTNotes: (Same As: Dulcolax, Correctol) (Do Not Crush) "Do Not Crush" Promethazine 12.5 mg, 0.5 mL, No Longer [facility] Route: IVPB, Active 2015 and Drug form: INJ, Spine Q4H, Dosing Weight 102.273, kg, PRN Nausea & Vomiting, Start date: 07/04/16 13:57:00 CDT, Duration: 30 day, Stop date: 08/03/16 13:56:00 CDTNotes: Do not give IV push. (Same as: Phenergan) Ondansetron 4 mg, 2 mL, No Longer [facility] Route: IVP, Drug Active 2015 and form: INJ, Q6H, Spine Dosing Weight 102.273, kg, PRN Nausea & Vomiting, Start date: 07/04/16 13:57:00 CDT, Duration: 30 day, Stop date: 08/03/16 13:56:00 CDTNotes: (Same as: Marlee) MEDICATION WASTE Product Size: 4 mg Product Wasted: ___ mg Temazepam 15 mg, 1 cap, No Longer [facility] Route: PO, Drug Active 2015 and form: CAP, Spine Bedtime, Dosing Weight 102.273, kg, PRN Insomnia, Start date: 07/04/16 13:57:00 CDT, Duration: 30 day, Stop date: 08/03/16 13:56:00 CDTNotes: (Same As: Restoril) zolpidem 5 mg, 1 tab, No Longer [facility] Route: PO, Drug Active 2015 and form: TAB, Spine Bedtime, Dosing Weight 102.273, kg, PRN Insomnia, Start date: 07/04/16 13:57:00 CDT, Duration: 30 day, Stop date: 08/03/16 13:56:00 CDTNotes: (Same As: Sukumar) Acetaminophen 325 2 tab, Route: No Longer Orth[facility] MG / Hydrocodone PO, Drug Form: Active 2015 and Bitartrate 10 MG TAB, Dosing Spine Oral Tablet Weight 102.273, kg, Q4H, PRN Pain Score 4-6, Start date: 07/04/16 13:57:00 CDT, Duration: 30 day, Stop date: 08/03/16 13:56:00 CDTNotes: Do not exceed 4gm/day of acetaminophen. (Same as: [place] 325/10) Naloxone 0.04 mg, 0.1 mL, No Longer [facility] Route: IVP, Drug Active 2015 and form: INJ, Spine Q2MIN, Dosing Weight 102.273, kg, PRN Narcotic Reversal, Start date: 07/04/16 13:57:00 CDT, Duration: 30 day, Stop date: 08/03/16 13:56:00 CDTNotes: Same as Narcan Saline Flush 0.9% 10 ml, Route: No Longer [facility] IVP, Drug Form: Active 2015 and INJ, Dosing Spine Weight 102.273, kg, PRN, PRN Line Flush, Start date: 07/04/16 13:57:00 CDT, Duration: 30 day, Stop date: 08/03/16 13:56:00 CDTNotes: preservative free. D5W 1/2NS + KCL 1,000 mL, Rate: No Longer Orth[facility] 20mEq/L 1000ml 75 ml/hr, Infuse Active 2015 and (Premix) 1,000 mL over: 13.3 hr, Spine Route: IV, Dosing Weight 102.273 kg, Total Volume: 1,000, Start date: 07/04/16 13:57:00 CDT, Duration: 30 day, Stop date: 08/03/16 13:56:00 CDTNotes: PREMIX IV - Do Not Alter WASTE: F/P - Sink; E - [employer] Trash [employer] brintellix brintellix, 20 No Longer Ortho mg, Route: PO, Active 2015 and Daily, 07/04/16 Spine 9:00:00 CDT, Stop date: 08/02/16 9:00:00 CDT Bupropion 150 mg, 1 tab, No Longer [facility] Route: PO, Drug Active 2015 and form: ERTAB, Spine Daily, Dosing Weight 102.273, kg, Start date: 07/04/16 9:00:00 CDT, Duration: 30 day, Stop date: 08/02/16 9:00:00 CDTNotes: (Same as: Wellbutrin XL) "Do Not Crush" Ibuprofen 800 mg, 2 tab, No Longer [facility] Route: PO, Drug Active 2015 and form: TAB, Q8H, Spine Dosing Weight 102.273, kg, Start date: 07/04/16 8:00:00 CDT, Duration: 30 day, Stop date: 08/03/16 0:00:00 CDTNotes: (Same as: Motrin) "Do Not Crush" Give with food. Robaxin 1,000 mg, 2 tab, No Longer [facility] Route: PO, Drug Active 2015 and form: TAB, Q8H, Spine Dosing Weight 102.273, kg, Start date: 07/04/16 8:00:00 CDT, Duration: 30 day, Stop date: 08/03/16 0:00:00 CDTNotes: (Same as:Robaxin) gabapentin 300 mg, 1 cap, No Longer [facility] Route: PO, Drug Active 2015 and form: CAP, Q8H, Spine Dosing Weight 102.273, kg, (CrCl > 60 ml/min), Start date: 07/04/16 8:00:00 CDT, Duration: 30 day, Stop date: 08/03/16 0:00:00 CDTNotes: (Same as: Neurontin) Zofran 4 mg, 2 mL, Inactive [facility] Route: IVP, Drug 2015 and form: INJ, Q6H, Spine Dosing Weight 102.273, kg, PRN as needed for nausea/vomiting, Start date: 07/04/16 7:24:00 CDT, Duration: 30 day, Stop date: 08/03/16 7:23:00 CDTNotes: (Same as: Zofran) MEDICATION WASTE Product Size: 4 mg Product Wasted: ___ mg Acetaminophen 325 1 tab, Route: Inactive Ortho MG / Hydrocodone PO, Drug Form: 2016 and Bitartrate 10 MG TAB, Dosing Spine Oral Tablet Weight 102.273, [[place] 10/325] kg, Q4H, PRN Pain Score 6-10, Start date: 07/04/16 7:24:00 CDT, Duration: 30 day, Stop date: 08/03/16 7:23:00 CDTNotes: Do not exceed 4gm/day of acetaminophen. (Same as: [place] 325/10) Tylenol 500 mg, 1 tab, No Longer Ortho Route: PO, Drug Active 2015 and form: TAB, Q4H, Spine Dosing Weight 102.273, kg, PRN For Temp > 100.4 F, Start date: 07/04/16 7:20:00 CDT, Duration: 30 day, Stop date: 08/03/16 7:19:00 CDTNotes: Max acetaminophen 4000 mg/day (4 gm/day). (Same as: Tylenol Extra Strength) vancomycin 1.5 gm, 250 mL, Inactive [facility] Route: IVPB, 2015 and Drug form: INJ, Spine Q12H, Start date: 07/04/16 0:00:00 CDT, Duration: 30 day, Stop date: 08/02/16 12:00:00 CDTNotes: TIME CRITICAL MEDICATION Same as: Vancocin-NS (premixed) Infusion rate 2001 mg: infuse over 2.5 hours Ceftriaxone 2 gm, Route: No Longer Ortho IVPB, [id number], Active 2015 and Dosing Weight Spine 102.273, kg, Start date: 07/03/16 23:30:00 CDT, Duration: 30 day, Stop date: 08/01/16 23:30:00 CDTNotes: (Same As: Rocephin). Use with 100 mL NS and infuse over 30 min MEDICATION WASTE Product Size: 2000 mg Product Wasted: ___ mg Tylenol 650 mg, 2 tab, No Longer [facility]o Route: PO, Drug Active 2015 and form: TAB, Q6H, Spine Dosing Weight 102.273, kg, PRN For Temp > 100.4 F, Start date: 07/03/16 23:13:00 CDT, Duration: 30 day, Stop date: 08/02/16 23:12:00 CDTNotes: Do not exceed 4 gm/day. (Same as: Tylenol) Vancomycin 1 gm, Route: Inactive [facility] IVPB, Drug form: 2016 and INJ, [id number], Spine Dosing Weight 102.273, kg, Start date: 07/03/16 23:00:00 CDT, Duration: 30 day, Stop date: 08/02/16 11:00:00 CDT Flagyl 500 mg, 100 mL, No Longer Ortho Route: IVPB, Active 2015 and Drug form: INJ, Spine [id number], Dosing Weight 102.273, kg, Start date: 07/03/16 23:00:00 CDT, Duration: 30 day, Stop date: 08/02/16 15:00:00 CDTNotes: (Same as: Flagyl) Avoid alcohol. Sodium Chloride 500 mL, 500 Inactive Ortho 0.154 MEQ/ML ml/hr, Infuse 2016 and Injectable Over: 1 hr, Spine Solution Route: IV, 500, Drug form: INJ, ONCE, Priority: STAT, Dosing Weight 102.273 kg, Start date: 07/03/16 22:54:00 CDT, Duration: 1 doses or times, Stop date: 07/03/16 22:54:00 CDT Naloxone 0.4 mg, 1 mL, Inactive Ortho Route: IV, Drug 2015 and form: INJ, ONCE, Spine Dosing Weight 102.273, kg, Start date: 07/03/16 22:25:00 CDT, Stop date: 07/03/16 22:25:00 CDTNotes: Same as Narcan Sodium Chloride 1,000 mL, Rate: No Longer Ortho 0.154 MEQ/ML 100 ml/hr, Active 2015 and Injectable Infuse over: 10 Spine Solution hr, Route: IV, Dosing Weight 102.273 kg, Total Volume: 1,000, Start date: 07/03/16 21:41:00 CDT, Stop date: 07/04/16 6:00:00 CDT Robaxin 1,000 mg, 2 tab, Inactive Ortho Route: PO, Drug 2015 and form: TAB, Q8H, Spine Dosing Weight 102.273, kg, Start date: 07/02/16 16:00:00 CDT, Duration: 30 day, Stop date: 08/01/16 8:00:00 CDTNotes: (Same as:Robaxin) Ibuprofen 800 mg, 2 tab, Inactive [facility] Route: PO, Drug 2015 and form: TAB, Q8H, Spine Dosing Weight 102.273, kg, Start date: 07/02/16 16:00:00 CDT, Duration: 30 day, Stop date: 08/01/16 8:00:00 CDTNotes: (Same as: Motrin) "Do Not Crush" Give with food. Vancomycin 1.75 gm, Route: No Longer Ortho IVPB, [id number], Active 2015 and Dosing Weight Spine 102.273, kg, Start date: 07/01/16 14:00:00 CDT, Duration: 30 day, Stop date: 07/31/16 2:00:00 CDTNotes: TIME CRITICAL MEDICATION (Same As: Vancocin) Infusion rate 2001 mg: infuse over 2.5 hours MEDICATION WASTE Product Size: 1000 mg Product Wasted: ___ mg Ceftriaxone 2 gm, Route: No Longer Ortho IVPB, Drug form: Active 2016 and PDR/INJ, Spine [id number], Dosing Weight 102.273, kg, Start date: 06/30/16 15:00:00 CDT, Duration: 30 day, Stop date: 07/29/16 15:00:00 CDTNotes: (Same As: Rocephin). Use with 100 mL NS and infuse over 30 min MEDICATION WASTE Product Size: 2000 mg Product Wasted: ___ mg Acetaminophen 325 2 tab, Route: No Longer Ortho MG / Oxycodone PO, Drug Form: Active 2015 and Hydrochloride 10 TAB, Dosing Spine MG Oral Tablet Weight 102.273, [Percocet 10/325] kg, Q6H, PRN Pain Score 7-10, Start date: 06/30/16 13:52:00 CDT, Duration: 30 day, Stop date: 07/30/16 13:51:00 CDTNotes: Do not exceed 4gm/day of acetaminophen. (Same as: Percocet-10/325) lactobacillus 1 tab, Route: No Longer Ortho acidophilus PO, Drug Form: Active 2016 and TAB, TID, Start Spine date: 06/29/16 17:00:00 CDT, Duration: 30 day, Stop date: 07/29/16 13:00:00 CDT Lactinex oral 1 tab, Route: Inactive Ortho tablet CHEW, Drug Form: 2016 and CHEWTAB, Dosing Spine Weight 102.273, kg, TID, Start date: 06/29/16 17:00:00 CDT, Duration: 30 day, Stop date: 07/29/16 13:00:00 CDT Invanz 1 gm, Route: No Longer Ortho IVPB, Drug form: Active 2016 and INJ, [id number], Spine Dosing Weight 102.273, kg, Start date: 06/29/16 15:00:00 CDT, Duration: 30 day, Stop date: 07/28/16 15:00:00 CDTNotes: (Same as: INVanz) Refrigerate. NOT COMPATIBLE WITH D5W. Stable in refrigerator for 24 hours MEDICATION WASTE Product Size: 1000 mg Product Wasted: ___ mg Fioricet 1 tab, Route: No Longer Ortho PO, Drug Form: Active 2016 and TAB, Dosing Spine Weight 102.273, kg, Q4H, PRN Headache 6-10, Start date: 06/29/16 11:07:00 CDT, Duration: 30 day, Stop date: 07/29/16 11:06:00 CDTNotes: (acetaminophen-b utalbital-caffei ne 325-50-40mg) Do not exceed 4 gm/day of acetaminophen. (Same as: Esgic, Fioricet) magnesium citrate 300 ml, Route: No Longer Ortho PO, Drug Form: Active 2015 and LIQ, Dosing Spine Weight 102.273, kg, Daily, PRN Constipation, Start date: 06/29/16 8:10:00 CDT, Duration: 30 day, Stop date: 07/29/16 8:09:00 CDTNotes: (Same as: Citrate of Magnesia) Saline Flush 0.9% 10 mL, Route: No Longer Ortho IVP, Drug Form: Active 2015 and INJ, Dosing Spine Weight 102.273, kg, Q8H, Start date: 06/29/16 0:00:00 CDT, Duration: 30 day, Stop date: 07/28/16 16:00:00 CDTNotes: Same as: BD Posiflush Sterile Lidocaine 50 mg, 5 mL, No Longer Ortho Hydrochloride 10 Route: Active 2016 and MG/ML Injectable INTRADERM, Drug Spine Solution Form: INJ, Dosing Weight 102.273, kg, ONCALL, Start date: 06/28/16 18:00:00 CDT, Duration: 30 day, Stop date: 07/28/16 17:59:00 CDTNotes: (Same as: Xylocaine) Saline Flush 0.9% 10 mL, Route: No Longer Ortho IVP, Drug Form: Active 2015 and INJ, Dosing Spine Weight 102.273, kg, PRN, PRN Line Flush, Start date: 06/28/16 17:44:00 CDT, Duration: 30 day, Stop date: 07/28/16 17:43:00 CDTNotes: Same as: BD Posiflush Sterile Trintellix 20 mg Trintellix 20 No Longer Ortho mg, 1 tablet, Active 2015 and Drug form: MISC, Spine Route: PO, Daily, 06/28/16 13:00:00 CDT, Duration: 30 day, Stop date: 07/28/16 9:00:00 CDT Vancomycin 1,500 mg, 250 No Longer Ortho mL, Route: IVPB, Active 2015 and Drug form: INJ, Spine [id number], Dosing Weight 102.273, kg, Start date: 06/28/16 13:00:00 CDT, Duration: 30 day, Stop date: 07/28/16 1:00:00 CDTNotes: TIME CRITICAL MEDICATION Same as: Vancocin-NS (premixed) Infusion rate 2001 mg: infuse over 2.5 hours Docusate Sodium 100 mg, 1 cap, No Longer Ortho 100 MG Oral Route: PO, Drug Active 2015 and Capsule form: CAP, BID, Spine Dosing Weight 102.273, kg, Start date: 06/28/16 9:00:00 CDT, Duration: 30 day, Stop date: 07/27/16 17:00:00 CDTNotes: (Same as: Colace) (Do Not Crush) ceFAZolin (SCIP) 2 gm, 100 mL, No Longer Ortho Route: IVPB, Active 2015 and Drug form: INJ, Spine Q8H, Dosing Weight 102.273, kg, Start date: 06/28/16 1:00:00 CDT, Duration: 3 doses or times, Stop date: 06/28/16 17:00:00 CDTNotes: Same as Ancef Naloxone 0.4 mg, 1 mL, Inactive Ortho Route: IVP, Drug 2015 and form: INJ, Spine Q2MIN, Dosing Weight 102.273, kg, PRN Narcotic Reversal, Start date: 06/27/16 17:55:00 CDT, Duration: 8 doses or times, Stop date: 06/28/16 0:00:00 CDTNotes: Same as Narcan Flumazenil 0.2 mg, 2 mL, Inactive Ortho Route: IVP, Drug 2015 and form: INJ, PRN, Spine Dosing Weight 102.273, kg, PRN Benzodiazepine Reversal, Initial dose, Start date: 06/27/16 17:55:00 CDT, Duration: 30 day, Stop date: 07/27/16 17:54:00 CDTNotes: (Same as: Romazicon) Hydromorphone 0.5 mg, 0.25 mL, Inactive Ortho Route: IVP, Drug 2015 and form: INJ, Spine Q5Min, Dosing Weight 102.273, kg, PRN Pain Score 7-10, Start date: 06/27/16 17:55:00 CDT, Duration: 4 doses or times, Stop date: 06/28/16 0:00:00 CDTNotes: Same as Dilaudid Promethazine 6.25 mg, 0.25 Inactive Ortho mL, Route: IVPB, 2015 and Drug form: INJ, Spine ONCE, Dosing Weight 102.273, kg, PRN Nausea & Vomiting, Start date: 06/27/16 17:55:00 CDTNotes: Do not give IV push. (Same as: Phenergan) Ondansetron 4 mg, 2 mL, Inactive Ortho Route: IVP, Drug 2015 and form: INJ, ONCE, Spine Dosing Weight 102.273, kg, PRN Nausea & Vomiting, Start date: 06/27/16 17:55:00 CDTNotes: (Same as: Zofran) MEDICATION WASTE Product Size: 4 mg Product Wasted: ___ mg Flexeril 10 mg, 1 tab, No Longer Ortho Route: PO, Drug Active 2015 and form: TAB, TID, Spine Dosing Weight 102.273, kg, PRN Spasm, Start date: 06/27/16 17:52:00 CDT, Duration: 30 day, Stop date: 07/27/16 17:51:00 CDTNotes: (Same As: Flexeril) Valium 5 mg, 1 mL, No Longer Ortho Route: IVP, Drug Active 2015 and form: INJ, Q8H, Spine Dosing Weight 102.273, kg, PRN Spasm, Start date: 06/27/16 17:52:00 CDT, Duration: 30 day, Stop date: 07/27/16 17:51:00 CDTNotes: (Same as: Valium) WASTE: F/P - Black; E - White/Blue D5W 1/2NS + KCL 1,000 mL, Rate: No Longer Ortho 20mEq/L 1000ml 75 ml/hr, Infuse Active 2015 and (Premix) 1,000 mL over: 13.3 hr, Spine Route: IV, Dosing Weight 102.273 kg, Total Volume: 1,000, Start date: 06/27/16 17:52:00 CDT, Duration: 30 day, Stop date: 07/27/16 17:51:00 CDTNotes: PREMIX IV - Do Not Alter WASTE: F/P - Sink; E - Municipal Trash Bin Saline Flush 0.9% 10 ml, Route: No Longer Ortho IVP, Drug Form: Active 2015 and INJ, Dosing Spine Weight 102.273, kg, PRN, PRN Line Flush, Start date: 06/27/16 17:52:00 CDT, Duration: 30 day, Stop date: 07/27/16 17:51:00 CDTNotes: Same as: BD Posiflush Sterile Dulcolax Laxative 5 mg, 1 tab, No Longer Ortho Route: PO, Drug Active 2015 and form: ECTAB, Spine Q24H, Dosing Weight 102.273, kg, PRN Constipation, Start date: 06/27/16 17:52:00 CDT, Duration: 30 day, Stop date: 07/27/16 17:51:00 CDTNotes: (Same As: Dulcolax, Correctol) (Do Not Crush) "Do Not Crush" Al hydroxide/Mg 30 ml, Route: No Longer Ortho hydroxide/simethi PO, Drug Form: Active 2016 and cone 200 mg-200 SUSP, Dosing Spine mg-20 mg/5 mL Weight 102.273, oral suspension kg, Q4H, PRN Indigestion, Start date: 06/27/16 17:52:00 CDT, Duration: 30 day, Stop date: 07/27/16 17:51:00 CDTNotes: (aluminum hydroxide-magnes ium hyd- simethicone [phone]/5ml 30 ml ud SORIN) Diphenhydramine 12.5 mg, 5 mL, No Longer Ortho Route: PO, Drug Active 2015 and form: LIQ, Q6H, Spine Dosing Weight 102.273, kg, PRN Itching, Start date: 06/27/16 17:52:00 CDT, Duration: 30 day, Stop date: 07/27/16 17:51:00 CDTNotes: (Same as: Benadryl) Promethazine 12.5 mg, 0.5 mL, No Longer Ortho Route: IVPB, Active 2015 and Drug form: INJ, Spine Q4H, Dosing Weight 102.273, kg, PRN Nausea & Vomiting, Start date: 06/27/16 17:52:00 CDT, Duration: 30 day, Stop date: 07/27/16 17:51:00 CDTNotes: Do not give IV push. (Same as: Phenergan) Ondansetron 4 mg, 2 mL, No Longer Ortho Route: IVP, Drug Active 2015 and form: INJ, Q6H, Spine Dosing Weight 102.273, kg, PRN Nausea & Vomiting, Start date: 06/27/16 17:52:00 CDT, Duration: 30 day, Stop date: 07/27/16 17:51:00 CDTNotes: (Same as: Zofran) MEDICATION WASTE Product Size: 4 mg Product Wasted: ___ mg Temazepam 15 mg, Route: Inactive Ortho PO, Drug form: 2016 and CAP, Bedtime, Spine Dosing Weight 102.273, kg, PRN Insomnia, Start date: 06/27/16 17:52:00 CDT, Duration: 30 day, Stop date: 07/27/16 17:51:00 CDT zolpidem 5 mg, 1 tab, No Longer Ortho Route: PO, Drug Active 2015 and form: TAB, Spine Bedtime, Dosing Weight 102.273, kg, PRN Insomnia, Start date: 06/27/16 17:52:00 CDT, Duration: 30 day, Stop date: 07/27/16 17:51:00 CDTNotes: (Same As: Sukumar) Hydromorphone 0.3 mg, 0.15 mL, No Longer Ortho Route: IVP, Drug Active 2015 and form: INJ, Q3H, Spine Dosing Weight 102.273, kg, PRN Pain Score 7-10, Start date: 06/27/16 17:52:00 CDT, Stop date: 07/27/16 17:51:00 CDTNotes: Same as Dilaudid Acetaminophen 325 2 tab, Route: No Longer Ortho MG / Hydrocodone PO, Drug Form: Active 2015 and Bitartrate 10 MG TAB, Dosing Spine Oral Tablet Weight 102.273, kg, Q4H, PRN Pain Score 4-6, Start date: 06/27/16 17:52:00 CDT, Duration: 30 day, Stop date: 07/27/16 17:51:00 CDTNotes: Do not exceed 4gm/day of acetaminophen. (Same as: [place] 325/10) Ancef 2 gm, Route: Inactive Ortho IVPB, ONCE, 2015 and Dosing Weight Spine 102.273, kg, Start date: 06/27/16 17:19:00 CDT, Duration: 1 doses or times, Stop date: 06/27/16 17:19:00 CDT, Surgical Prophylaxis Only; For patients Lactated Ringers 1,000 mL, Rate: No Longer Ortho 1,000 mL 75 ml/hr, Infuse Active 2015 and over: 13.3 hr, Spine Route: IV, Dosing Weight 102.273 kg, Total Volume: 1,000, Start date: 06/27/16 16:53:00 CDT, Duration: 30 day, Stop date: 07/27/16 16:52:00 CDT Hydromorphone 0.5 mg, 0.25 mL, No Longer Ortho Route: IVP, Drug Active 2015 and form: INJ, Spine Q5Min, Dosing Weight 102.273, kg, PRN Pain Score 4-6, Priority: STAT, Start date: 06/27/16 16:46:00 CDT, Duration: 1 day, Stop date: 06/28/16 16:45:00 CDTNotes: Same as Dilaudid Brintellix 20mg Brintellix 20mg, No Longer Ortho 1 tab, Drug Active 2015 and form: MISC, Spine Route: PO, Daily, 06/27/16 9:00:00 CDT, Duration: 30 day, Stop date: 07/26/16 9:00:00 CDT Simvastatin 40 mg, 2 tab, No Longer Ortho Route: PO, Drug Active 2015 and form: TAB, Spine Bedtime, Dosing Weight 102.273, kg, Start date: 06/26/16 21:00:00 CDT, Duration: 30 day, Stop date: 07/25/16 21:00:00 CDTNotes: (Same as: Zocor) Clonazepam 1 mg, 2 tab, No Longer Ortho Route: PO, Drug Active 2015 and form: TAB, Spine Bedtime, Dosing Weight 102.273, kg, Start date: 06/26/16 21:00:00 CDT, Duration: 30 day, Stop date: 07/25/16 21:00:00 CDTNotes: (Same As: KlonoPIN) Benicar 20 mg, 1 tab, No Longer Ortho Route: PO, Drug Active 2015 and form: TAB, Spine Bedtime, Start date: 06/26/16 21:00:00 CDT, Duration: 30 day, Stop date: 07/25/16 21:00:00 CDT Abilify 2.5 mg, 0.5 tab, No Longer Ortho Route: PO, Drug Active 2015 and form: TAB, Spine Bedtime, Dosing Weight 102.273, kg, Start date: 06/26/16 21:00:00 CDT, Duration: 30 day, Stop date: 07/25/16 21:00:00 CDTNotes: Non-Formulary Drug. (Same as: Abilify) Amlodipine 10 MG 1 tab, Route: Inactive Ortho / Olmesartan PO, Drug Form: 2015 and medoxomil 20 MG TAB, Dosing Spine Oral Tablet Weight 102.273, kg, Bedtime, Start date: 06/26/16 21:00:00 CDT, Duration: 30 day, Stop date: 07/25/16 21:00:00 CDT Norvasc 10 mg, 1 tab, No Longer Ortho Route: PO, Drug Active 2015 and form: TAB, Spine Bedtime, Start date: 06/26/16 21:00:00 CDT, Duration: 30 day, Stop date: 07/25/16 21:00:00 CDTNotes: (Same as: Norvasc) Docusate 100 mg, 1 cap, No Longer Ortho Route: PO, Drug Active 2015 and form: CAP, BID, Spine Dosing Weight 102.273, kg, Start date: 06/26/16 9:00:00 CDT, Duration: 30 day, Stop date: 07/25/16 17:00:00 CDTNotes: (Same as: Colace) (Do Not Crush) Brintellix Brintellix, 20 Inactive Ortho mg, Route: PO, 2015 and Daily, 06/26/16 Spine 9:00:00 CDT, Duration: 30 day, Stop date: 07/25/16 9:00:00 CDT Ancef 2 gm, 100 mL, No Longer Ortho Route: IVPB, Active 2015 and Drug form: INJ, Spine ABXQ8H, Dosing Weight 102.273, kg, Start date: 06/26/16 9:00:00 CDT, Duration: 30 day, Stop date: 07/26/16 1:00:00 CDTNotes: Same as Ancef POLYETHYLENE 17 gm, 1 pkt, No Longer Ortho GLYCOL 3350 Route: PO, Drug Active 2015 and form: PWDR, Spine Daily, Dosing Weight 102.273, kg, Start date: 06/26/16 9:00:00 CDT, Duration: 30 day, Stop date: 07/25/16 9:00:00 CDTNotes: Dissolve in 8 oz of water or juice. (Same as: Miralax) gabapentin 300 mg, 1 cap, No Longer Ortho Route: PO, Drug Active 2015 and form: CAP, Spine Q8Hnow, Dosing Weight 102.273, kg, Start date: 06/26/16 9:00:00 CDT, Duration: 30 day, Stop date: 07/26/16 1:00:00 CDTNotes: (Same as: Neurontin) Tramadol 100 mg, 2 tab, No Longer Ortho Route: PO, Drug Active 2015 and form: TAB, Spine Q6Hnow, Dosing Weight 102.273, kg, Start date: 06/26/16 9:00:00 CDT, Duration: 30 day, Stop date: 07/26/16 3:00:00 CDTNotes: Not to exceed 400mg/day. (Same As: Ultram) Bupropion 150 mg, 1 tab, No Longer Ortho Route: PO, Drug Active 2015 and form: ERTAB, Spine Daily, Dosing Weight 102.273, kg, Start date: 06/26/16 9:00:00 CDT, Duration: 30 day, Stop date: 07/25/16 9:00:00 CDTNotes: (Same as: Wellbutrin XL) "Do Not Crush" Methocarbamol 1,000 mg, 2 tab, No Longer Ortho Route: PO, Drug Active 2015 and form: TAB, Q8H, Spine Dosing Weight 102.273, kg, PRN Muscle Spasms, Start date: 06/26/16 8:38:00 CDT, Duration: 30 day, Stop date: 07/26/16 8:37:00 CDTNotes: (Same as:Robaxin) Bisacodyl 10 mg, 1 supp, No Longer Ortho Route: ME, Drug Active 2015 and form: SUPP, Spine Daily, Dosing Weight 102.273, kg, PRN Constipation, Start date: 06/26/16 8:38:00 CDT, Duration: 30 day, Stop date: 07/26/16 8:37:00 CDTNotes: (Same As: Dulcolax, Bisco-Lax) Morphine 4 mg, 0.4 mL, No Longer Ortho Route: IVP, Drug Active 2015 and form: INJ, Q4H, Spine Dosing Weight 102.273, kg, PRN Pain Score 7-10, Start date: 06/26/16 8:38:00 CDT, Duration: 30 day, Stop date: 07/26/16 8:37:00 CDTNotes: (Same as:MORPhine Sulfate) Al hydroxide/Mg 15 mL, Route: No Longer Ortho hydroxide/simethi PO, Drug Form: Active 2015 and cone 200 mg-200 SUSP, Dosing Spine mg-20 mg/5 mL Weight 102.273, oral suspension kg, Q4H, PRN Indigestion, Start date: 06/26/16 8:38:00 CDT, Duration: 30 day, Stop date: 07/26/16 8:37:00 CDTNotes: (aluminum hydroxide-magnes ium hyd- simethicone [phone]/5ml 30 ml ud SORIN) Trazodone 50 mg, 1 tab, No Longer Ortho Route: PO, Drug Active 2015 and form: TAB, Spine Bedtime, Dosing Weight 102.273, kg, PRN Insomnia, Start date: 06/26/16 8:38:00 CDT, Duration: 30 day, Stop date: 07/26/16 8:37:00 CDTNotes: (Same As: Desyrel) Diphenhydramine 12.5 mg, 5 mL, No Longer Ortho Route: PO, Drug Active 2015 and form: LIQ, Q6H, Spine Dosing Weight 102.273, kg, PRN Itching, Start date: 06/26/16 8:38:00 CDT, Duration: 30 day, Stop date: 07/26/16 8:37:00 CDTNotes: (Same as: Benadryl) Acetaminophen 325 1 tab, Route: No Longer Ortho MG / Hydrocodone PO, Drug Form: Active 2015 and Bitartrate 10 MG TAB, Dosing Spine Oral Tablet Weight 102.273, [[place] 10/325] kg, Q6H, PRN Pain Score 7-10, Start date: 06/26/16 8:38:00 CDT, Duration: 30 day, Stop date: 07/26/16 8:37:00 CDTNotes: Do not exceed 4gm/day of acetaminophen. (Same as: [place] 325/10) Acetaminophen 325 1 tab, Route: No Longer Ortho MG / Hydrocodone PO, Drug Form: Active 2015 and Bitartrate 5 MG TAB, Dosing Spine Oral Tablet Weight 102.273, [[place] 5/325] kg, Q6H, PRN Pain Score 4-6, Start date: 06/26/16 8:38:00 CDT, Duration: 30 day, Stop date: 07/26/16 8:37:00 CDTNotes: (Same as: [place] 325/5) Do not exceed 4gm/day of acetaminophen. Acetaminophen 650 mg, 2 tab, No Longer Ortho Route: PO, Drug Active 2015 and form: TAB, Q6H, Spine Dosing Weight 102.273, kg, PRN Pain 1-3/Temp > 100.4 F, Start date: 06/26/16 8:37:00 CDT, Duration: 30 day, Stop date: 07/26/16 8:36:00 CDTNotes: Do not exceed 4 gm/day. (Same as: Tylenol) NS + KCL 20mEq/L 1,000 mL, Rate: No Longer Ortho 1000ml (Premix) 75 ml/hr, Infuse Active 2015 and 1,000 mL over: 13.3 hr, Spine Route: IV, Dosing Weight 102.273 kg, Total Volume: 1,000, Start date: 06/26/16 8:02:00 CDT, Duration: 30 day, Stop date: 07/26/16 8:01:00 CDTNotes: PREMIX IV - Do Not Alter WASTE: F/P - Sink; E - Municipal Trash Bin Acetaminophen 1,000 mg, 2 tab, Inactive Ortho Route: PO, Drug 2015 and form: TAB, Q6H, Spine Dosing Weight 102.273, kg, Start date: 06/26/16 0:00:00 CDT, Duration: 30 day, Stop date: 07/25/16 18:00:00 CDTNotes: Max acetaminophen 4000 mg/day (4 gm/day). (Same as: Tylenol Extra Strength) aripiprazole 5 MG See On Hold Ortho Oral Tablet Instructions, 2016 and [Abilify] 2.5mg PO daily Spine at bedtime buPROPion 150 mg 150 mg=1 tab, On Hold Ortho oral tablet, PO, Daily 2015 and extended release Spine vortioxetine 20 20 mg=1 tab, PO, On Hold Ortho MG Oral Tablet Daily 2015 and [Brintellix] Spine clonazePAM 1 mg 1 mg=1 tab, PO, On Hold Ortho oral tablet Bedtime 2015 and Spine simvastatin 40 mg 40 mg=1 tab, PO, On Hold Ortho oral tablet Bedtime 2015 and Spine Amlodipine 10 MG 1 tab, PO, On Hold Ortho / Olmesartan Bedtime 2015 and medoxomil 20 MG Spine Oral Tablet meloxicam 15 mg 15 mg=1 tab, PO, No Longer Ortho oral tablet Daily Active 2015 and Spine Oxycodone 5 mg, 1 tab, No Longer Ortho Hydrochloride 5 Route: PO, Drug Active 2015 and MG Oral Tablet form: TAB, Q6H, Spine Dosing Weight 102.273, kg, PRN Pain Score 4-6, Start date: 06/25/16 22:36:00 CDT, Duration: 30 day, Stop date: 07/25/16 22:35:00 CDTNotes: (Same as: Roxicodone) Ondansetron 4 mg, 2 mL, No Longer Ortho Route: IVP, Drug Active 2015 and form: INJ, Q6H, Spine Dosing Weight 102.273, kg, PRN Nausea & Vomiting, Start date: 06/25/16 22:34:00 CDT, Duration: 30 day, Stop date: 07/25/16 22:33:00 CDTNotes: (Same as: Zofran) MEDICATION WASTE Product Size: 4 mg Product Wasted: ___ mg Allergies, Adverse Reactions, Alerts Substance Category Reaction Severity Reaction Status Date Comments Source type Reported Immunizations Immunization Date Given Site Status Last Updated Comments Source Results Order Name Results Value Reference Date Interpretation Comments Source Range URINE AND UA Turbidity Clear Clear 08/13 Ortho STOOL and Spine (08/13/16 3:30 PM) URINE AND UA Color Yellow Yellow 08/13 Ortho STOOL and Spine *NA* (08/13/16 3:30 PM) URINE AND UA pH 6.0 5.0 - 8.0 08/13 Ortho STOOL and Spine URINE AND UA Glucose Negative Negative 08/13 Ortho STOOL mg/dL mg/dL /2015 and Spine URINE AND UA Spec Grav 1.015 <=1.030 08/13 Ortho STOOL /2015 and Spine URINE AND UA Protein Negative Negative 08/13 Ortho STOOL mg/dL mg/dL /2015 and Spine URINE AND UA Bili Negative Negative 08/13 Ortho STOOL and Spine *NA* (08/13/16 3:30 PM) URINE AND UA Nitrite Negative Negative 08/13 Ortho STOOL and Spine (08/13/16 3:30 PM) URINE AND UA Ketones Negative Negative 08/13 Ortho STOOL mg/dL mg/dL and Spine URINE AND UA 0.2 EU/dL 0.1 - 1.0 08/13 Ortho STOOL Urobilinogen /2015 and Spine URINE AND UA Blood Negative Negative 08/13 Ortho STOOL and Spine (08/13/16 3:30 PM) URINE AND UA Leuk Est Negative Negative 08/13 Ortho STOOL and Spine (08/13/16 3:30 PM) URINE AND UA Sq Epi See Note 1 Few 08/13 Result Ortho STOOL Comment: not and Spine (08/13/16 3:30 PM) indicated. BLOOD BANK Antibody Negative 08/12 Ortho RESULTS Scrn and Spine (08/12/16 1:19 PM) BLOOD BANK ABO/Rh B POS 08/12 Ortho RESULTS and Spine CHEM PANEL eGFR 87 08/12 Result Comment: The eGFR is calculated using the CKD-EPI formula. In most young, healthy individuals the eGFR will be >90 mL/ min/1.73m2. The eGFR declines with age. An eGFR of 60-89 may be normal in Ortho mL/min/1.7 /2016 some populations, particularly the elderly, for whom the CKD-EPI formula has not been extensively validated. Use of the eGFR is not recommended in the following populations: and Spine 3m2 Individuals with unstable creatinine concentrations, including patients and those with serious co-morbid conditions. Patients with extremes in muscle mass or diet. The data above are obtained from the National Kidney Disease Education Program (NKDEP) which additionally recommends that when the eGFR is used in patients with extremes of body mass index for purposes of drug dosing, the eGFR should be multiplied by the estimated BMI. CHEM PANEL Bili Total 0.4 mg/dL 0.2 - 1.3 08/12 Ortho and Spine CHEM PANEL Alk Phos 118 unit/L 39 - 136 08/12 Ortho and Spine CHEM PANEL ASPARTATE 30 unit/L 0 - 37 08/12 Ortho TRANSAMINASE /2015 and Spine CHEM PANEL ALANINE 30 unit/L 0 - 65 08/12 Ortho AMINOTRANSFE and Spine RASE CHEM PANEL Albumin Lvl 2.7 g/dL 3.5 - 5.0 08/12 Ortho and Spine CHEM PANEL Total 7.9 g/dL 6.4 - 8.4 08/12 Ortho Protein and Spine CHEM PANEL Creatinine 0.99 mg/dL 0.50 - 08/12 Ortho Lvl 1.40 /2015 and Spine CHEM PANEL BUN 17 mg/dL 7 - 22 08/12 Ortho and Spine CHEM PANEL Glucose Lvl 109 mg/dL 70 - 99 08/12 Ortho and Spine CHEM PANEL Sodium Lvl 137 meq/L 135 - 145 08/12 and Spine CHEM PANEL Calcium Lvl 9.7 mg/dL 8.5 - 10.5 08/12 and Spine CHEM PANEL CO2 31 meq/L 24 - 32 08/12 Ortho and Spine CHEM PANEL Chloride Lvl 99 meq/L 95 - 109 08/12 and Spine CHEM PANEL Potassium 4.1 meq/L 3.5 - 5.1 08/12 Ortho Lvl /2015 and Spine CHEM PANEL AGAP 11.1 meq/L 10.0 - 08/12 Ortho 20.0 /2016 and Spine CHEM PANEL A/G Ratio 0.5 0.7 - 1.6 08/12 and Spine CHEM PANEL Globulin 5.2 g/dL 2.7 - 4.2 08/12 Ortho and Spine CHEM PANEL B/C Ratio 17 6 - 25 08/12 Ortho and Spine HEMATOLOGY Sed Rate null 0 - 15 08/12 Ortho and Spine HEMATOLOGY INR 1.03 0.85 - 08/12 Ortho 1.17 /2015 and Spine HEMATOLOGY PROTIME 13.7 s 12.0 - 08/12 Ortho 14.7 /2015 and Spine HEMATOLOGY aPTT 47.9 s 22.9 - 08/12 Result Ortho 35.8 /2016 Comment: and Spine Repeated and Verified. HEMATOLOGY Eosinophils 0.2 K/CMM 0.0 - 0.5 08/12 Ortho # /2016 and Spine HEMATOLOGY Monocytes # 1.0 K/CMM 0.0 - 0.8 08/12 [facility] Ortho /2016 and Spine HEMATOLOGY Basophils # 0.1 K/CMM 0.0 - 0.2 08/12 Ortho /2016 and Spine HEMATOLOGY Lymphocytes 1.2 K/CMM 1.0 - 5.5 08/12 Ortho # /2016 and Spine HEMATOLOGY Lymphocytes 8.0 % 20.0 - 08/12 [facility] Ortho 40.0 /2016 and Spine HEMATOLOGY Segs 83.4 % 45.0 - 10 Ortho 75.0 /2016 and Spine HEMATOLOGY Eosinophils 1.5 % 0.0 - 4.0 08/12 Ortho /2015 and Spine HEMATOLOGY Basophils 0.7 % 0.0 - 1.0 08/12 Ortho /2015 and Spine HEMATOLOGY Segs-Bands # 12.9 K/CMM 1.5 - 8.1 08/12 Ortho /2015 and Spine HEMATOLOGY Monocytes 6.4 % 2.0 - 12.0 08/12 Ortho /2015 and Spine HEMATOLOGY MPV 6.8 fL 7.4 - 10.4 08/12 Ortho /2015 and Spine HEMATOLOGY RDW 15.0 % 11.5 - 08/12 Ortho 14.5 /2015 and Spine HEMATOLOGY Platelet 402 K/CMM 133 - 450 08/12 Ortho /2015 and Spine HEMATOLOGY MCHC 32.9 g/dL 32.0 - 08/12 Ortho 36.0 /2015 and Spine HEMATOLOGY MCH 28.1 pg 27.0 - 08/12 Ortho 31.0 /2016 and Spine HEMATOLOGY Hct 29.1 % 42.0 - 08/12 Ortho 54.0 /2016 and Spine HEMATOLOGY MCV 85.6 fL 80.0 - 08/12 Ortho 94.0 /2016 and Spine HEMATOLOGY RBC 3.40 M/CMM 4.70 - 08/12 Ortho 6.10 and Spine HEMATOLOGY Hgb 9.6 g/dL 14.0 - 08/12 Ortho 18.0 /2016 and Spine HEMATOLOGY WBC 15.5 K/CMM 3.7 - 10.4 08/12 Ortho /2015 and Spine IMMUNOLOGY C-REACTIVE 86.3 mg/L <=2.9 mg/L 08/12 Ortho PROTEIN /2015 and Spine CARDIAC Total CK 57 unit/L 12 - 191 08/12 Ortho ENZYMES /2015 and Spine Spine Spine lumbar EXAM: CT LUMBAR SPINE WITHOUT CONTRAST 08/12 - [facility] lumbar wo wo - [place] contrast CT CT This report was dictated by a Merchandise Marker/ Fellow. I have personally reviewed the images as well as the Resident's interpretation and agree with the findings. DATE: 08/12/2016 at 1330 hours. Read by: Rico Talbert MD Resident: Rico Talbert MD Dictated Date/time: 08/12/16 15:54 Electronically Signed by: Clifton Cuevas MD 08/12/16 18:50 FINAL REPORT INDICATION: Status post lumbar fusion and post lumbar wound infection with intractable low back pain and right lower extremity radiculopathy. He was discharged home from previous I\\T\\D was doing fine a nd started having low back pain and leg pain. His pain has continued to increase. He is unable to place any weight on his right leg. He has been afebrile. Continues to be on long-term antibiotics. Preoperative CT for evaluation/planning. COMPARISON: . Previous MR lumbar spine dated 07/09/2016. TECHNIQUE: Axial CT imaging of the lumbar spine was obtained without administration of intravenous contrast. Sagittal and coronal reconstructions were submitted for review. IV contrast: None. DLP: 814 mGy-cm FINDINGS: There is mild left lateral subluxation of the L4 vertebral body over L5. There has been intervertebral disc space collapse in the interval with poor definition of the intervertebral fusion cage. Mild s urrounding sclerotic marrow changes are noted. Focal anterior epidural soft tissue mass is noted. A nondisplaced fracture of the right lamina of the L4 vertebral body is seen. Post lumbar fusion status is seen with transpedicular screws and darien at L4 and L5 level on the left and isolated transpedicular screws at L5 and S1 on the right. Retaining screw is present at S1 in the midline anteriorly. Intervertebral cage is seen at the L5-S1 level. Ill- defined posterior paraspinal soft tissue hypodensity is noted at L4-L5, more prominent on the right side with surrounding fat stranding. The remaining lumbar vertebrae and intervertebral discs are unremarkable. IMPRESSION: 1. Progression destructive endplate changes of L4-L5. 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 2. Left lateral subluxation of the L4 vertebral body over L5. Chest 1 v Chest 1 v EXAM: XR CHEST 1 VIEW 08/12 - [facility] [place] Placement Placement DX DX DATE: 08/12/2016 12:08 PM CDT Read by: Darryl Porras MD Dictated Date/time: 08/12/16 12:37 Electronically Signed by: Darryl Porras MD 08/12/16 12:37 FINAL REPORT INDICATION: PICC Line Placement COMPARISON: Chest radiograph 07/08/2016 TECHNIQUE: AP chest FINDINGS: Right upper extremity PICC tip overlies the upper SVC. No pulmonary or pleural-based abnormality is identified. Pulmonary vascularity is normal. The heart size is normal for technique. No acute bony abnormality is identified. IMPRESSION: Right upper extremity PICC tip overlying the upper SVC. ELECTROLYTE AGAP 7.5 meq/L 10.0 - 07/13 Ortho S 20.0 and Spine ELECTROLYTE eGFR 104 07/13 Result Comment: The eGFR is calculated using the CKD-EPI formula. In most young, healthy individuals the eGFR will be > 90 mL/min/1.73m2. The eGFR declines with age. An eGFR of 60-89 may be normal in Ortho S mL/min/1.7 some populations, particularly the elderly, for whom the CKD-EPI formula has not been extensively validated. Use of the eGFR is not recommended in the following populations: and Spine 3m2 Individuals with unstable creatinine concentrations, including patients and those with serious co-morbid conditions. Patients with extremes in muscle mass or diet. The data above are obtained from the National Kidney Disease Education Program (NKDEP) which additionally recommends that when the eGFR is used in patients with extremes of body mass index for purposes of drug dosing, the eGFR should be multiplied by the estimated BMI. ELECTROLYTE Glucose Lvl 91 mg/dL 70 - 99 07/13 Ortho S /2015 and Spine ELECTROLYTE BUN 8 mg/dL 7 - 22 07/13 Ortho S /2015 and Spine ELECTROLYTE CO2 33 meq/L 24 - 32 07/13 Ortho S /2015 and Spine ELECTROLYTE Calcium Lvl 8.6 mg/dL 8.5 - 10.5 07/13 Ortho S /2015 and Spine ELECTROLYTE Sodium Lvl 137 meq/L 135 - 145 07/13 Ortho S /2015 and Spine ELECTROLYTE Chloride Lvl 100 meq/L 95 - 109 07/13 Ortho S /2016 and Spine ELECTROLYTE Potassium 3.5 meq/L 3.5 - 5.1 07/13 Ortho S Lvl /2016 and Spine ELECTROLYTE Creatinine 0.78 mg/dL 0.50 - 07/13 Ortho S Lvl 1.40 /2015 and Spine HEMATOLOGY Hgb 10.9 g/dL 14.0 - 07/13 Ortho 18.0 /2016 and Spine HEMATOLOGY Hct 32.1 % 42.0 - 07/13 Ortho 54.0 /2016 and Spine HEMATOLOGY MCV 90.6 fL 80.0 - 07/13 Ortho 94.0 /2016 and Spine HEMATOLOGY WBC 9.2 K/CMM 3.7 - 10.4 07/13 Ortho /2015 and Spine HEMATOLOGY RBC 3.55 M/CMM 4.70 - 07/13 Ortho 6.10 and Spine HEMATOLOGY Platelet 435 K/CMM 133 - 450 07/13 [facility] and Spine HEMATOLOGY MPV 6.6 fL 7.4 - 10.4 07/13 Ortho /2015 and Spine HEMATOLOGY RDW 13.8 % 11.5 - 07/13 Ortho 14.5 /2015 and Spine HEMATOLOGY MCHC 34.0 g/dL 32.0 - 07/13 Orth[facility] 36.0 /2016 and Spine HEMATOLOGY MCH 30.8 pg 27.0 - 07/13 Orth[facility] 31.0 /2016 and Spine HEMATOLOGY Basophils # 0.1 K/CMM 0.0 - 0.2 07/13 Ortho /2016 and Spine HEMATOLOGY Lymphocytes 1.1 K/CMM 1.0 - 5.5 07/13 Ortho # /2016 and Spine HEMATOLOGY Segs-Bands # 6.9 K/CMM 1.5 - 8.1 07/13 Ortho /2016 and Spine HEMATOLOGY Basophils 0.7 % 0.0 - 1.0 07/13 Ortho /2016 and Spine HEMATOLOGY Eosinophils 2.3 % 0.0 - 4.0 07/13 Ortho /2016 and Spine HEMATOLOGY Monocytes 9.5 % 2.0 - 12.0 07/13 [facility] HEMATOLOGY Eosinophils 0.2 K/CMM 0.0 - 0.5 07/13 Orth[facility] # /2016 and Spine HEMATOLOGY Monocytes # 0.9 K/CMM 0.0 - 0.8 07/13 Ortho /2015 and Spine HEMATOLOGY Lymphocytes 12.1 % 20.0 - 07/13 Ortho 40.0 /2016 and Spine HEMATOLOGY Segs 75.4 % 45.0 - 07/13 Ortho 75.0 /2016 and Spine TOXICOLOGY Vanco Tr TND 2100 07/13 [facility] TOXICOLOGY Vanco Tr 18.9 ug/ml 07/13 Ortho /2015 and Spine HEMATOLOGY Lymphocytes 1.3 K/CMM 1.0 - 5.5 07/12 /2015 [facility] HEMATOLOGY Monocytes # 1.0 K/CMM 0.0 - 0.8 07/12 [facility] HEMATOLOGY Eosinophils 0.2 K/CMM 0.0 - 0.5 07/12 [place] # /2015 [facility] HEMATOLOGY Segs 71.2 % 45.0 - 09 [place] 75.0 /2016 [facility] HEMATOLOGY Lymphocytes 14.8 % 20.0 - 09 [place] 40.0 /2015 [facility] HEMATOLOGY Monocytes 11.2 % 2.0 - 12.0 07/12 [facility] HEMATOLOGY Eosinophils 2.3 % 0.0 - 4.0 07/12 [facility] HEMATOLOGY Basophils 0.5 % 0.0 - 1.0 07/12 [facility] HEMATOLOGY Segs-Bands # 6.4 K/CMM 1.5 - 8.1 07/12 [facility] HEMATOLOGY Platelet 435 K/CMM 133 - 450 07/12 [facility] HEMATOLOGY MPV 6.5 fL 7.4 - 10.4 07/12 [facility] HEMATOLOGY Hgb 10.4 g/dL 14.0 - 07/12 [place] 18.0 2016 [facility] HEMATOLOGY Hct 29.2 % 42.0 - 07/12 [place] 54.0 /2016 [facility] HEMATOLOGY RBC 3.26 M/CMM 4.70 - 07/12 [place] 6.10 [facility] HEMATOLOGY RDW 13.6 % 11.5 - 09 [place] 14.5 /2016 [facility] HEMATOLOGY MCHC 35.5 g/dL 32.0 - 07/12 [place] 36.0 /2016 [facility] HEMATOLOGY WBC 8.9 K/CMM 3.7 - 10.4 07/12 [facility] HEMATOLOGY MCH 31.9 pg 27.0 - 07/12 [place] 31.0 [facility] HEMATOLOGY MCV 89.6 fL 80.0 - 09/10 [place] 94.0 [facility] TOXICOLOGY Vanco Tr TND 1330 07/11 [facility] TOXICOLOGY Vanco Tr 22.0 ug/ml 07/11 [facility] HEMATOLOGY Segs 76.6 % 45.0 - 07/10 [place] 75.0 /2015 [facility] HEMATOLOGY Segs-Bands # 8.8 K/CMM 1.5 - 8.1 07/10 [facility] HEMATOLOGY Basophils 0.7 % 0.0 - 1.0 07/10 [facility] HEMATOLOGY Basophils # 0.1 K/CMM 0.0 - 0.2 07/10 [facility] HEMATOLOGY Eosinophils 0.2 K/CMM 0.0 - 0.5 07/10 [facility] HEMATOLOGY Monocytes 9.4 % 2.0 - 12.0 07/10 [facility] HEMATOLOGY Lymphocytes 11.3 % 20.0 - 07/10 40.0 [facility] HEMATOLOGY Lymphocytes 1.3 K/CMM 1.0 - 5.5 07/10 [facility] HEMATOLOGY Monocytes # 1.1 K/CMM 0.0 - 0.8 07/10 [facility] HEMATOLOGY Eosinophils 2.0 % 0.0 - 4.0 07/10 [facility] HEMATOLOGY MPV 7.0 fL 7.4 - 10.4 07/10 [facility] HEMATOLOGY Platelet 481 K/CMM 133 - 450 07/10 [facility] HEMATOLOGY RDW 13.3 % 11.5 - 09 [place] 14.5 [facility] HEMATOLOGY MCHC 33.1 g/dL 32.0 - 09 [place] 36.0 [facility] HEMATOLOGY MCH 29.9 pg 27.0 - 09 [place] 31.0 [facility] HEMATOLOGY MCV 90.3 fL 80.0 - 07/10 [place] 94.0 [facility] HEMATOLOGY WBC 11.5 K/CMM 3.7 - 10.4 07/10 [facility] HEMATOLOGY Hct 31.2 % 42.0 - 07/10 [place] 54.0 [facility] HEMATOLOGY RBC 3.46 M/CMM 4.70 - 07/10 [place] 6.10 [facility] HEMATOLOGY Hgb 10.3 g/dL 14.0 - 07/10 [facility] 18.0 [facility] Spine Spine lumbar After the report was issued, Lewis, the patient's nurse was informed of the findings. 07/09 - [place] lumbar w/wo w/ - Medical contrast contrast MRI EXAM: MRI LUMBAR SPINE WITHOUT AND WITH CONTRAST Center MRI Read by: Clifton Cuevas MD Dictated Date/time: 07/10/16 16:14 DATE: 07/10/2016 at 0035 hours Electronically Signed by: Clifton Cuevas MD 07/10/16 16:14 FINAL REPORT - - INDICATION: Back pain. Fevers and sepsis. On long-term IV antibiotic therapy. Read by: Clifton Cuevas MD Dictated Date/time: 07/10/16 08:19 Data from the 06/2816 progress note: postoperative lumbar spine infection with a Staphylococcus aureus and a gram-negative darien, back pain, history of hypertension, hyperlipidemia, morbid obesity, depress Electronically Signed by: Clifton Cuevas MD 07/10/16 16:09 ion. Continue IV vancomycin, monitor vancomycin trough and I will add Invanz 1 gram q. 4 hours pending ID and susceptibility of gram-negative rods. PSIF of L4-L5 done on 06/09. Postoperative wound infect FINAL REPORT ion on 06/26. Discharged to home on 06/30 with plans for long-term IV antibiotic therapy. Repeat admission on 07/03. Wound VAC placed on 07/04. Worsening AMS with lethargy, tachycardia and hyponatremia on . Due to concern for worsening of sepsis at impending decompensation, the patient was transferred to [facility] for HLOC. COMPARISON: Previous postoperative study of 07/04/2016 and prior postoperative studies of 04/22/2016 and 11/13/2011 TECHNIQUE: Multiplanar MR imaging of the lumbar spine, with and without contrast. IV contrast: 20 cc of Dotarem. The patient was medicated for pain before coming to MR imaging and was still complaining of pain. Morphine was given as ordered by the clinical service. FINDINGS: The previously noted subcutaneous portion of the lower posterior paraspinal abscess has been evacuated.. Otherwise, there has been no change. The communicating tract to the deep paraspinal abscess at the surgical site is unchanged and best identified on sagittal image #9 on series #14 image. The paraspinal collections underneath the deep muscular fascia at L4 and L5, right greater than left are unchanged and associated with rim enhancement indicating persistent abscess formation. There is a persistent large anterior epidural fluid collection extending from T12 down to S2 largest AP diameter at the level of L5 measuring 1.8 cm across.. Flow related artifacts are noted within this collection on the T2-weighted views. The thecal sac is posteriorly displaced. Again noted is enhancing dura along the posteriorly displaced thecal sac with enhancement of the cauda equina nerve roots. Darien and screw fixation at L4-L5 on the left unchanged. Transpedicular screws at L5 and S1 unchanged. Retaining screw at S1 anteriorly unchanged. Interbody carbon cages are present at L4-L5 and L5-S1. Persistent endplate edema at L4-L5 with enhancement suggestive of but not diagnostic for infection and may rather represent chronic degenerative changes IMPRESSION: 1. Large anterior epidural abscess from T12 to S1. 2. Persistent posterior paraspinal abscess at the surgical site. 3. Enhancing cauda equina nerve roots indicating arachnoiditis. 4. 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 5. Interval drainage of the associated subcutaneous abscess. TOXICOLOGY Vanco Tr TND 0600 07/09 [facility] TOXICOLOGY Vanco Tr 17.1 ug/ml 07/09 [facility] CHEM PANEL eGFR 112 07/09 Result Comment: The eGFR is calculated using the CKD-EPI formula. In most young, healthy individuals the eGFR will be >90 mL/ min/1.73m2. The eGFR declines with age. An eGFR of 60-89 may be normal in [facility] mL/min/1 some populations, particularly the elderly, for whom the CKD-EPI formula has not been extensively validated. Use of the eGFR is not recommended in the following populations: [address] Individuals with unstable creatinine concentrations, including patients and those with serious co-morbid conditions. Patients with extremes in muscle mass or diet. The data above are obtained from the National Kidney Disease Education Program (NKDEP) which additionally recommends that when the eGFR is used in patients with extremes of body mass index for purposes of drug dosing, the eGFR should be multiplied by the estimated BMI. CHEM PANEL AGAP 14.8 meq/L 10.0 - 07/09 [facility] 20.0 [facility] CHEM PANEL Calcium Lvl 8.5 mg/dL 8.5 - 10.5 07/09 [facility] CHEM PANEL CO2 28 meq/L 24 - 32 07/09 [facility] CHEM PANEL BUN 9 mg/dL 7 - 22 07/09 [facility] CHEM PANEL Glucose Lvl 108 mg/dL 70 - 99 07/09 [facility] CHEM PANEL Sodium Lvl 137 meq/L 135 - 145 07/09 [facility] CHEM PANEL Potassium 3.8 meq/L 3.5 - 5.1 07/09 [facility] /2015 [facility] CHEM PANEL Creatinine 0.66 mg/dL 0.50 - 07/09 [place] Lvl 1.40 /2015 [facility] CHEM PANEL Chloride Lvl 98 meq/L 95 - 109 07/09 [facility] HEMATOLOGY Lymphocytes 1.0 K/CMM 1.0 - 5.5 07/09 [facility] /2015 [facility] HEMATOLOGY Basophils 0.5 % 0.0 - 1.0 07/09 [facility] HEMATOLOGY Segs-Bands # 13.9 K/CMM 1.5 - 8.1 07/09 [facility] HEMATOLOGY Lymphocytes 5.9 % 20.0 - 07/09 [place] 40.0 /2015 [facility] HEMATOLOGY Segs 85.4 % 45.0 - 07/09 [place] 75.0 /2015 [facility] HEMATOLOGY Monocytes # 1.3 K/CMM 0.0 - 0.8 07/09 [facility] HEMATOLOGY Eosinophils 0.1 K/CMM 0.0 - 0.5 07/09 [facility] HEMATOLOGY Eosinophils 0.4 % 0.0 - 4.0 07/09 [facility] HEMATOLOGY Monocytes 7.8 % 2.0 - 12.0 07/09 [facility] HEMATOLOGY Basophils # 0.1 K/CMM 0.0 - 0.2 07/09 [facility] HEMATOLOGY MCHC 35.2 g/dL 32.0 - 07/09 [place] 36.0 /2015 [facility] HEMATOLOGY RDW 13.7 % 11.5 - 07/09 [place] 14.5 /2015 [facility] HEMATOLOGY Platelet 489 K/CMM 133 - 450 07/09 [facility] HEMATOLOGY MCV 89.6 fL 80.0 - 07/09 [facility] [place] 94.0 [facility] HEMATOLOGY Hct 28.9 % 42.0 - 07/09 [facility] 54.0 [facility] HEMATOLOGY MCH 31.5 pg 27.0 - 07/09 [facility] 31.0 [facility] HEMATOLOGY MPV 6.9 fL 7.4 - 10.4 07/09 [facility] HEMATOLOGY RBC 3.23 M/CMM 4.70 - 07/09 [facility] 6.10 [facility] HEMATOLOGY Hgb 10.2 g/dL 14.0 - 07/09 [facility] 18.0 [facility] HEMATOLOGY WBC 16.3 K/CMM 3.7 - 10.4 07/09 [facility] CHEM PANEL eGFR 108 07/09 Result Comment: The eGFR is calculated using the CKD-EPI formula. In most young, healthy individuals the eGFR will be >90 mL/ min/1.73m2. The eGFR declines with age. An eGFR of 60-89 may be normal in [facility] mL/min/1. some populations, particularly the elderly, for whom the CKD-EPI formula has not been extensively validated. Use of the eGFR is not recommended in the following populations: [address] Individuals with unstable creatinine concentrations, including patients and those with serious co-morbid conditions. Patients with extremes in muscle mass or diet. The data above are obtained from the National Kidney Disease Education Program (NKDEP) which additionally recommends that when the eGFR is used in patients with extremes of body mass index for purposes of drug dosing, the eGFR should be multiplied by the estimated BMI. CHEM PANEL Calcium Lvl 9.0 mg/dL 8.5 - 10.5 07/09 [facility] CHEM PANEL AGAP 10.8 meq/L 10.0 - 07/09 [facility] 20.0 [facility] CHEM PANEL CO2 31 meq/L 24 - 32 07/09 [facility] CHEM PANEL Chloride Lvl 99 meq/L 95 - 109 07/09 [facility] CHEM PANEL Potassium 3.8 meq/L 3.5 - 5.1 07/09 [facility] l [facility] CHEM PANEL Sodium Lvl 137 meq/L 135 - 145 07/09 [facility] CHEM PANEL Creatinine 0.70 mg/dL 0.50 - 07/09 [facility] Lvl 1.40 [facility] CHEM PANEL BUN 9 mg/dL 7 - 22 07/09 [facility]2015 [facility] CHEM PANEL Glucose Lvl 104 mg/dL 70 - 99 07/09 [facility]2015 [facility] URINE AND UA Sq Epi RARE 07/08 [facility]2015 [facility] URINE AND UA <=1.0 0.1 - 1.0 07/08 [facility] Urobilinogen mg/dL [facility] URINE AND Micro? Not Indicated 07/08 [facility] *NA* [place] (07/08/16 3:50 PM) URINE AND UA WBC 2 /HPF 0 - 5 07/08 [facility]2015 [facility] URINE AND UA RBC null 0 - 2 07/08 [facility]2015 [facility] URINE AND UA Leuk Est Negative Negative 07/08 [facility] (07/08/16 3:50 PM) [place] URINE AND UA Spec Grav 1.006 <=1.030 07/08 [facility]2015 [facility] URINE AND UA Color Light Yellow Yellow 07/08 [facility] *NA* [place] (07/08/16 3:50 PM) URINE AND UA Turbidity Clear Clear 07/08 [facility] (07/08/16 3:50 PM) [place] URINE AND UA Protein Negative Negative 07/08 [facility] mg/dL mg/dL [facility] URINE AND UA Mucus Few /LPF None Seen 07/08 [facility] STOOL /LPF /2015 [facility] URINE AND UA Nitrite Negative Negative 07/08 [facility] (07/08/16 3:50 PM) [place] URINE AND UA Bili Negative Negative 07/08 [facility] *NA* [place] (07/08/16 3:50 PM) URINE AND UA Blood Negative Negative 07/08 [facility] (07/08/16 3:50 PM) [place] URINE AND UA Glucose Negative Negative 07/08 [facility] mg/dL mg/dL [facility] URINE AND UA Ketones 20 mg/dL Negative 07/08 [facility] mg/dL [facility] URINE AND UA pH 6.0 5.0 - 8.0 07/[address] URINE CHEM U Sodium 23 meq/L 07/08 [facility] URINE CHEM U Osmolality 187 300 - 800 07/08 [facility] mOsm/kg /2015 [facility] Chest 1view Chest 1view EXAM: XR CHEST 1 VIEW 07/08 - [facility] DX DX - Medical This report was dictated by a Merchandise Marker/Fellow. I have personally reviewed the images as Center well as the Resident's interpretation and agree with the findings. DATE: 07/08/2016 10:49 AM CDT Read by: Liu Owen (Fellow ) Resident: Liu Owen (Fellow) Dictated Date/time: 07/08/16 13:07 Electronically Signed by: Chapin Nieves MD 07/08/16 19:16 FINAL REPORT INDICATION: Fever COMPARISON: 07/08/2016 at 0450 FINDINGS: Right PICC is present with tip overlying the SVC. The cardiomediastinal silhouette is stable. While evaluation is limited given semi-erect positioning, no distinct pneumothorax is identified. No focal consolidation is present. IMPRESSION: No acute cardiopulmonary findings. CARDIAC Total CK 31 unit/L 12 - 191 07/08 [facility] CHEM PANEL eGFR 104 07/08 Result Comment: The eGFR is calculated using the CKD-EPI formula. In most young, healthy individuals the eGFR will be >90 mL/ min/1.73m2. The eGFR declines with age. An eGFR of 60-89 may be normal in [facility] mL/min/1.7 /2015 some populations, particularly the elderly, for whom the CKD-EPI formula has not been extensively validated. Use of the eGFR is not recommended in the following populations: [address] Individuals with unstable creatinine concentrations, including patients and those with serious co-morbid conditions. Patients with extremes in muscle mass or diet. The data above are obtained from the National Kidney Disease Education Program (NKDEP) which additionally recommends that when the eGFR is used in patients with extremes of body mass index for purposes of drug dosing, the eGFR should be multiplied by the estimated BMI. CHEM PANEL Bili Total 0.7 mg/dL 0.2 - 1.3 07/08 [facility]2015 [facility] CHEM PANEL Alk Phos 100 unit/L 39 - 136 07/[address] CHEM PANEL Albumin Lvl 3.0 g/dL 3.5 - 5.0 07/08 [facility]2015 [facility] CHEM PANEL Total 8.7 g/dL 6.4 - 8.4 07/08 [facility] CHEM PANEL AST 16 unit/L 0 - 37 07/08 [facility] CHEM PANEL CO2 25 meq/L 24 - 32 07/08 [facility] CHEM PANEL Chloride Lvl 92 meq/L 95 - 109 07/08 [facility] CHEM PANEL Calcium Lvl 9.6 mg/dL 8.5 - 10.5 07/08 [facility] CHEM PANEL ALT 41 unit/L 0 - 65 07/08 [facility] CHEM PANEL Potassium 3.7 meq/L 3.5 - 5.1 07/08 l [facility] CHEM PANEL Sodium Lvl 128 meq/L 135 - 145 07/08 [facility] CHEM PANEL Glucose Lvl 142 mg/dL 70 - 99 07/08 [facility] CHEM PANEL Creatinine 0.78 mg/dL 0.50 - 07/08 [facility] Lv 1.40 /2015 [facility] CHEM PANEL BUN 8 mg/dL 7 - 22 07/08 [facility] CHEM PANEL A/G Ratio 0.5 0.7 - 1.6 07/08 [facility] CHEM PANEL Globulin 5.7 g/dL 2.7 - 4.2 07/08 [facility] CHEM PANEL B/C Ratio 10 6 - 25 07/08 [facility] CHEM PANEL AGAP 14.7 meq/L 10.0 - 07/08 20.0 [facility] CHEM PANEL Phosphorus 2.3 mg/dL 2.5 - 4.5 07/08 [facility] CHEM PANEL Magnesium 2.3 mg/dL 1.8 - 2.4 07/08 l [facility] CHEM PANEL Osmolality 273 280 - 300 07/08 [facility] mOsm/kg /2015 [facility] HEMATOLOGY PT 14.0 s 12.0 - 07/08 [facility] 14.7 [facility] HEMATOLOGY PTT 41.8 s 22.9 - 07/08 [place] 35.8 [facility] HEMATOLOGY INR 1.05 0.85 - 07/08 [facility] 1.17 [facility] HEMATOLOGY Sed Rate null 0 - 15 07/08 [facility] IMMUNOLOGY C-REACTIVE 210.0 mg/L <=2.9 mg/L 07/08 [facility] [place] PROTEIN /2015 [facility] Center TOXICOLOGY Vanco Lvl 15.9 ug/ml 07/08 [place] /2015 [facility] CARDIAC Total CK 24 unit/L 12 - 191 07/08 [facility] ENZYMES /2015 [facility] Center Chest 1view Chest 1view EXAM: XR CHEST 1 VIEW 07/08 - [facility] DX DX /2015 - [facility] DATE: 07/08/2016 Read by: Jacqueline Crawford MD Dictated Date/time: 07/08/16 08:41 Electronically Signed by: Jacqueline Crawford MD 07/08/16 08:41 FINAL REPORT INDICATION: Abnormal chest sounds . Comparison is made with 07/03/2016 FINDINGS: Cardiomediastinal silhouette and right PICC line are stable. Costophrenic sulci are sharp. The lungs are clear IMPRESSION: No significant interval change when compared to prior radiograph. CHEM PANEL Lactic Acid 1.3 mMol/L 0.5 - 2.2 07/08 [facility] CHEM PANEL Globulin 5.7 g/dL 2.7 - 4.2 07/08 [facility] CHEM PANEL A/G Ratio 0.5 0.7 - 1.6 07/08 [facility] CHEM PANEL B/C Ratio 10 6 - 25 07/08 [facility] /2015 and Spine CHEM PANEL AGAP 14.8 meq/L 10.0 - 07/08 [facility] 20.0 /2015 and Spine CHEM PANEL eGFR 108 07/08 Result Comment: The eGFR is calculated using the CKD-EPI formula. In most young, healthy individuals the eGFR will be >90 mL/ min/1.73m2. The eGFR declines with age. An eGFR of 60-89 may be normal in [facility] mL/min/1.7 /2016 some populations, particularly the elderly, for whom the CKD-EPI formula has not been extensively validated. Use of the eGFR is not recommended in the following populations: and Spine 3m2 Individuals with unstable creatinine concentrations, including patients and those with serious co-morbid conditions. Patients with extremes in muscle mass or diet. The data above are obtained from the National Kidney Disease Education Program (NKDEP) which additionally recommends that when the eGFR is used in patients with extremes of body mass index for purposes of drug dosing, the eGFR should be multiplied by the estimated BMI. CHEM PANEL Albumin Lvl 2.9 g/dL 3.5 - 5.0 07/08 [facility] CHEM PANEL Total 8.6 g/dL 6.4 - 8.4 07/08 [facility] Protein and Spine CHEM PANEL AST 17 unit/L 0 - 37 07/08 and Spine CHEM PANEL ALT 44 unit/L 0 - 65 07/08 and Spine CHEM PANEL Bili Total 0.5 mg/dL 0.2 - 1.3 07/08 and Spine CHEM PANEL Alk Phos 97 unit/L 39 - 136 07/08 and Spine CHEM PANEL BUN 7 mg/dL 7 - 22 07/08 and Spine CHEM PANEL Glucose Lvl 177 mg/dL 70 - 99 07/08 and Spine CHEM PANEL Sodium Lvl 127 meq/L 135 - 145 07/08 and Spine CHEM PANEL Creatinine 0.70 mg/dL 0.50 - 07/08 [facility] Lvl 1.40 /2015 and Spine CHEM PANEL Chloride Lvl 89 meq/L 95 - 109 07/08 and Spine CHEM PANEL Potassium 3.8 meq/L 3.5 - 5.1 07/08 [facility] /2015 and Spine CHEM PANEL Calcium Lvl 9.4 mg/dL 8.5 - 10.5 07/08 and Spine CHEM PANEL CO2 27 meq/L 24 - 32 07/08 and Spine HEMATOLOGY MCHC 33.2 g/dL 32.0 - 07/08 [facility] 36.0 /2015 and Spine HEMATOLOGY MCH 30.7 pg 27.0 - 07/08 [facility] 31.0 /2015 and Spine HEMATOLOGY RDW 13.7 % 11.5 - 07/08 [facility] 14.5 and Spine HEMATOLOGY RBC 3.56 M/CMM 4.70 - 07/08 [facility] 6.10 and Spine HEMATOLOGY WBC 23.8 K/CMM 3.7 - 10.4 07/08 [facility] HEMATOLOGY MPV 7.0 fL 7.4 - 10.4 07/08 [facility] HEMATOLOGY Platelet 598 K/CMM 133 - 450 07/08 [facility] HEMATOLOGY Hct 32.9 % 42.0 - 07/08 [facility] 54.0 /2016 and Spine HEMATOLOGY Hgb 10.9 g/dL 14.0 - 0906 [facility] 18.0 and Spine HEMATOLOGY MCV 92.5 fL 80.0 - 07/08 [facility] 94.0 /2015 and Spine HEMATOLOGY Plt Morph Normal 07/08 and Spine (07/07/16 11:18 PM) HEMATOLOGY RBC Morph Normal 07/08 and Spine (07/07/16 11:18 PM) HEMATOLOGY Segs 95.7 % 45.0 - 07/08 [facility] 75.0 /2015 and Spine HEMATOLOGY Segs-Bands # 22.8 K/CMM 1.5 - 8.1 07/08 [facility] HEMATOLOGY Lymphocytes 0.4 K/CMM 1.0 - 5.5 07/08 [facility] # /2015 and Spine HEMATOLOGY Monocytes # 0.5 K/CMM 0.0 - 0.8 07/08 [facility] HEMATOLOGY Basophils 0.2 % 0.0 - 1.0 07/08 [facility] HEMATOLOGY Lymphocytes 1.9 % 20.0 - 07/08 [facility] 40.0 and Spine HEMATOLOGY Monocytes 2.2 % 2.0 - 12.0 07/08 [facility] Abdomen AP Abdomen AP Single view abdomen 07/07/201607/07 - [facility] DX DX /2015 - [place] CLINICAL HISTORY: Vomiting. Read by: Byron Kaur MD Dictated Date/time: 07/08/16 00:48 Electronically Signed by: Byron Kaur MD 07/08/16 00:52 FINAL REPORT FINDINGS: Postsurgical changes with instrumented dictation noted lower lumbar spine and lumbosacral junction. No obvious organomegaly or mass. Gas is seen within the stomach small bowel and colon without definite evidence of adynamic ileus or obstruction. No definite extraluminal air identified. No abnormal calcifications. IMPRESSION: 1. No obvious organomegaly or mass. 2. No definite evidence of adynamic ileus or obstruction. TOXICOLOGY Vanco Tr TND 2100 07/07 and Spine TOXICOLOGY Vanco Tr 15.9 ug/ml 07/07 and Spine HEMATOLOGY WBC X 10x3 11.7 K/CMM 3.7 - 10.4 07/05 [facility] HEMATOLOGY RBC X 10x6 2.81 M/CMM 4.70 - 07/05 [facility] 6.10 /2015 and Spine HEMATOLOGY MCH 30.6 pg 27.0 - 07/05 [facility] 31.0 /2015 and Spine HEMATOLOGY MCV 96.8 fL 80.0 - 07/05 [facility] 94.0 /2015 and Spine HEMATOLOGY MCHC 31.6 g/dL 32.0 - 07/05 Ortho 36.0 /2015 and Spine HEMATOLOGY Hct 27.2 % 42.0 - 07/05 Ortho 54.0 /2015 and Spine HEMATOLOGY Hgb 8.6 g/dL 14.0 - 07/05 Ortho 18.0 /2015 and Spine HEMATOLOGY MPV 9.0 fL 7.4 - 10.4 07/05 [facility] HEMATOLOGY RDW 12.9 % 11.5 - 07/05 Ortho 14.5 /2015 and Spine HEMATOLOGY Platelet 317 K/CMM 133 - 450 07/05 [facility] Spine HEMATOLOGY Monocytes 9.5 % 2.0 - 12.0 07/05 [facility] HEMATOLOGY Lymphocytes 12.2 % 20.0 - 07/05 Ortho 40.0 /2015 and Spine HEMATOLOGY Basophils 0.3 % 0.0 - 1.0 07/05 [facility] Spine HEMATOLOGY Eosinophils 1.8 % 0.0 - 4.0 07/05 [facility] Sp[facility] HEMATOLOGY Segs 76.2 % 45.0 - 07/05 Ortho 75.0 /2015 and Spine ELECTROLYTE Chloride Lvl 101 meq/L 95 - 109 07/05 Ortho S and Spine ELECTROLYTE CO2 29 meq/L 24 - 32 07/05 Ortho S and Spine ELECTROLYTE Potassium 4.1 meq/L 3.5 - 5.1 07/05 Ortho S Lv and Spine ELECTROLYTE AGAP 10.1 meq/L 10.0 - 07/05 Ortho S 20.0 and Spine ELECTROLYTE Calcium Lvl 8.4 mg/dL 8.5 - 10.5 07/05 Ortho S and Spine ELECTROLYTE BUN 11 mg/dL 7 - 22 07/05 Ortho S and Spine ELECTROLYTE Sodium Lvl 136 meq/L 135 - 145 07/05 Ortho S and Spine ELECTROLYTE Glucose Lvl 102 mg/dL 70 - 99 07/05 Ortho S and Spine ELECTROLYTE Creatinine 0.86 mg/dL 0.50 - 07/05 Ortho S Lvl 1.40 /2015 and Spine ELECTROLYTE eGFR 100 07/05 Result Comment: The eGFR is calculated using the CKD-EPI formula. In most young, healthy individuals the eGFR will be > 90 mL/min/1.73m2. The eGFR declines with age. An eGFR of 60-89 may be normal in [facility] S mL/min/1.7 some populations, particularly the elderly, for whom the CKD-EPI formula has not been extensively validated. Use of the eGFR is not recommended in the following populations: and Spine 3m2 Individuals with unstable creatinine concentrations, including patients and those with serious co-morbid conditions. Patients with extremes in muscle mass or diet. The data above are obtained from the National Kidney Disease Education Program (NKDEP) which additionally recommends that when the eGFR is used in patients with extremes of body mass index for purposes of drug dosing, the eGFR should be multiplied by the estimated BMI. TOXICOLOGY Vanco Tr TND 0500 07/05 Ortho and Spine TOXICOLOGY Vanco Tr 18.6 ug/ml 07/05 Ortho and Spine CHEM PANEL eGFR 103 07/04 Result Comment: The eGFR is calculated using the CKD-EPI formula. In most young, healthy individuals the eGFR will be >90 mL/ min/1.73m2. The eGFR declines with age. An eGFR of 60-89 may be normal in Ortho mL/min/1.7 some populations, particularly the elderly, for whom the CKD-EPI formula has not been extensively validated. Use of the eGFR is not recommended in the following populations: and Spine 3m2 Individuals with unstable creatinine concentrations, including patients and those with serious co-morbid conditions. Patients with extremes in muscle mass or diet. The data above are obtained from the National Kidney Disease Education Program (NKDEP) which additionally recommends that when the eGFR is used in patients with extremes of body mass index for purposes of drug dosing, the eGFR should be multiplied by the estimated BMI. CHEM PANEL Bili Total 0.4 mg/dL 0.2 - 1.3 07/04 Ortho and Spine CHEM PANEL Alk Phos 110 unit/L 39 - 136 / Ortho and Spine CHEM PANEL ASPARTATE 60 unit/L 0 - 37 07/04 Ortho TRANSAMINASE and Spine CHEM PANEL ALANINE 58 unit/L 0 - 65 07/04 Ortho AMINOTRANS /2015 and Spine RASE CHEM PANEL Albumin Lvl 2.5 g/dL 3.5 - 5.0 / Ortho and Spine CHEM PANEL Total 7.5 g/dL 6.4 - 8.4 07/04 Ortho Protein and Spine CHEM PANEL Potassium 4.5 meq/L 3.5 - 5.1 / Ortho Lvl /2015 and Spine CHEM PANEL Calcium Lvl 8.8 mg/dL 8.5 - 10.5 07/04 Ortho and Spine CHEM PANEL Chloride Lvl 95 meq/L 95 - 109 / Ortho and Spine CHEM PANEL CO2 25 meq/L 24 - 32 07/04 Ortho and Spine CHEM PANEL Creatinine 0.80 mg/dL 0.50 - 09 Ortho Lvl 1.40 and Spine CHEM PANEL Sodium Lvl 130 meq/L 135 - 145 07/04 and Spine CHEM PANEL BUN 8 mg/dL 7 - 22 07/04 and Spine CHEM PANEL Glucose Lvl 98 mg/dL 70 - 99 07/04 and Spine CHEM PANEL A/G Ratio 0.5 0.7 - 1.6 07/04 and Spine CHEM PANEL Globulin 5.0 g/dL 2.7 - 4.2 07/04 Ortho and Spine CHEM PANEL AGAP 14.5 meq/L 10.0 - 07/04 Ortho 20.0 and Spine CHEM PANEL B/C Ratio 10 6 - 25 07/04 and Spine HEMATOLOGY RDW 13.1 % 11.5 - 07/04 Ortho 14.5 and Spine HEMATOLOGY MPV 9.6 fL 7.4 - 10.4 07/04 Ortho and Spine HEMATOLOGY Platelet 347 K/CMM 133 - 450 07/04 Ortho and Spine HEMATOLOGY MCHC 33.7 g/dL 32.0 - 07/04 Ortho 36.0 /2015 and Spine HEMATOLOGY RBC X 10x6 3.53 M/CMM 4.70 - 07/04 Ortho 6.10 and Spine HEMATOLOGY WBC X 10x3 19.5 K/CMM 3.7 - 10.4 07/04 Ortho and Spine HEMATOLOGY Hgb 11.6 g/dL 14.0 - 07/04 Ortho 18.0 and Spine HEMATOLOGY Hct 34.4 % 42.0 - 09/ Ortho 54.0 /2016 and Spine HEMATOLOGY MCV 97.5 fL 80.0 - / Ortho 94.0 /2015 and Spine HEMATOLOGY MCH 32.9 pg 27.0 - 07/04 Ortho 31.0 /2015 and Spine HEMATOLOGY Lymphocytes 1.0 K/CMM 1.0 - 5.5 / Ortho # /2015 and Spine HEMATOLOGY Monocytes # 1.1 K/CMM 0.0 - 0.8 / Ortho and Spine HEMATOLOGY Eosinophils 0.0 K/CMM 0.0 - 0.5 / Ortho # /2015 and Spine HEMATOLOGY Basophils # 0.0 K/CMM 0.0 - 0.2 / Ortho and Spine HEMATOLOGY Monocytes 5.7 % 2.0 - 12.0 / Ortho and Spine HEMATOLOGY Eosinophils 0.1 % 0.0 - 4.0 / Ortho and Spine HEMATOLOGY Basophils 0.1 % 0.0 - 1.0 07/04 Ortho and Spine HEMATOLOGY Segs-Bands # 17.4 K/CMM 1.5 - 8.1 07/04 Ortho and Spine HEMATOLOGY Lymphocytes 5.0 % 20.0 - 09 Ortho 40.0 /2015 and Spine HEMATOLOGY Segs 89.1 % 45.0 - / Ortho 75.0 /2015 and Spine CHEM PANEL Procalcitoni 0.13 ng/mL 0.00 - 09 Ortho n Lvl 0.10 /2015 and Spine ANEMIA Vitamin B12 923 pg/mL 254 - 1320 07/04 Ortho STUDY Lv and Spine CHEM PANEL Lactic Acid 1.5 mMol/L 0.5 - 2.2 07/04 Ortho Lvl and Spine CHEM PANEL Bili Total 0.4 mg/dL 0.2 - 1.3 07/04 Ortho and Spine CHEM PANEL Alk Phos 90 unit/L 39 - 136 / Ortho and Spine CHEM PANEL Albumin Lvl 2.4 g/dL 3.5 - 5.0 / Ortho and Spine CHEM PANEL ALANINE 60 unit/L 0 - 65 07/04 Ortho AMINOTRANSFE and Spine RASE CHEM PANEL ASPARTATE 45 unit/L 0 - 37 07/04 Ortho TRANSAMINASE /2015 and Spine CHEM PANEL Total 7.0 g/dL 6.4 - 8.4 07/04 Ortho Protein /2015 and Spine CHEM PANEL A/G Ratio 0.5 0.7 - 1.6 07/04 Ortho /2015 and Spine CHEM PANEL B/C Ratio 10 6 - 25 07/04 Ortho /2015 and Spine CHEM PANEL Globulin 4.6 g/dL 2.7 - 4.2 07/04 Ortho and Spine CHEM PANEL Ammonia 22.0 <=45.0 07/04 Ortho umol/L uMol/L /2015 and Spine DRUG SCREEN U Cocaine Negative Negative 07/04 Ortho Scr and Spine *NA* (07/03/16 10:33 PM) DRUG SCREEN U Cannab Scr Negative Negative 07/04 Ortho and Spine *NA* (07/03/16 10:33 PM) DRUG SCREEN U Amy Scr Negative Negative 07/04 Ortho and Spine *NA* (07/03/16 10:33 PM) DRUG SCREEN U Benzodia Negative Negative 07/04 Ortho Scr and Spine *NA* (07/03/16 10:33 PM) DRUG SCREEN U Phencyc Negative Negative 07/04 Ortho Scr and Spine *NA* (07/03/16 10:33 PM) DRUG SCREEN UDS Note See Note 07/04 Ortho and Spine (07/03/16 10:33 PM) DRUG SCREEN U Opiate Scr Positive Negative 07/04 Ortho and Spine *ABN* (07/03/16 10:33 PM) DRUG SCREEN U Amph Scr Negative Negative 07/04 Ortho and Spine *NA* (07/03/16 10:33 PM) HEMATOLOGY Atypical 0.0 % <=0.0 % 07/04 Ortho Lymphs /2015 and Spine HEMATOLOGY Bands 0.0 % 0.0 - 11.0 07/04 Ortho and Spine HEMATOLOGY Lymphocytes 1.7 K/CMM 1.0 - 5.5 07/04 Ortho # /2015 and Spine HEMATOLOGY Segs-Bands # 16.2 K/CMM 1.5 - 8.1 07/04 Ortho and Spine HEMATOLOGY Monocytes # 1.1 K/CMM 0.0 - 0.8 07/04 Ortho and Spine HEMATOLOGY RBC Morph Normal 07/04 Ortho and Spine (07/03/16 10:33 PM) HEMATOLOGY Plt Morph Normal 07/04 Ortho and Spine (07/03/16 10:33 PM) HEMATOLOGY aPTT 25.4 s 22.9 - 07/04 Ortho 35.8 /2015 and Spine HEMATOLOGY PROTIME 13.3 s 12.0 - 07/04 Ortho 14.7 /2015 and Spine HEMATOLOGY INR 0.98 0.85 - 07/04 Ortho 1.17 /2015 and Spine URINE AND UA WBC 0-2 /HPF None Seen 07/04 Ortho STOOL /HPF /2015 and Spine URINE AND UA Sq Epi Rare /LPF Few /LPF 07/04 Ortho STOOL and Spine URINE AND Micro? Performed 07/04 Ortho STOOL and Spine (07/03/16 10:33 PM) URINE AND UA RBC 0-2 /HPF 0 - 2 07/04 Ortho STOOL and Spine URINE AND UA Bili Negative Negative 07/04 Ortho STOOL and Spine *NA* (07/03/16 10:33 PM) URINE AND UA Bacteria Occasional None Seen 07/04 Ortho STOOL /HPF /HPF /2015 and Spine URINE AND UA Blood Trace Negative 07/04 Ortho STOOL and Spine *ABN* (07/03/16 10:33 PM) URINE AND UA Leuk Est Negative Negative 07/04 Ortho STOOL and Spine (07/03/16 10:33 PM) URINE AND UA Color Yellow Yellow 07/04 Ortho STOOL and Spine *NA* (07/03/16 10:33 PM) URINE AND UA Turbidity Clear Clear 07/04 Ortho STOOL and Spine (07/03/16 10:33 PM) URINE AND UA Nitrite Negative Negative 07/04 Ortho STOOL and Spine (07/03/16 10:33 PM) URINE AND UA 0.2 EU/dL 0.1 - 1.0 07/04 [facility] STOOL Urobilinogen /2015 and Spine URINE AND UA pH 6.0 5.0 - 8.0 07/04 Ortho STOOL and Spine URINE AND UA Spec Grav <=1.005 <=1.030 07/04 [facility] STOOL
*NA*< /2015 and Spine br/>( 6 10:33 PM) URINE AND UA Ketones Negative Negative 07/04 Ortho STOOL and Spine *NA* (07/03/16 10:33 PM) URINE AND UA Protein Negative Negative 07/04 Ortho STOOL and Spine (07/03/16 10:33 PM) URINE AND UA Glucose Negative Negative 07/04 Ortho STOOL and Spine (07/03/16 10:33 PM) Spine Spine lumbar Magnetic resonance imaging of the lumbar spine pre and postcontrast 07/04/2016. 07/04 - [facility] lumbar w/wo w/wo - [place] contrast contrast MRI MRI CLINICAL HISTORY: Severe low back pain status post lumbar fusion 2015. Read by: Byron Kaur MD Dictated Date/time: 07/04/16 03:17 Electronically Signed by: Byron Kaur MD 07/04/16 03:48 FINAL REPORT Comparison examination: 04/22/2016 FINDINGS: 5 nonrib-bearing lumbar type vertebral bodies will be assumed. Abnormal appearing conus medullaris (lying at L1). Additionally cauda equina appears abnormal with enhancement involving the son of the lower thoracic cord/conus and of the cauda equina. Abnormal enhanc ement of lower thoracic, lumbar and sacral thecal sac dura is seen as well. Status post global instrumented fusion at L4-L5 since previous exam with placement of interbody fusion cage/graft and pedicle screw and darien fixation hardware.. There is an intradiscal fluid collection a ssociated with graft/cage. Endplates appear irregular and poorly defined with enhancing T1 hypointense and T2 hyperintense marrow spaces inferior L4 and superior L5 vertebral bodies. 11 mm ring-enhancin g fluid collection left lateral epidural space adjacent to left L4-L5 foramen. Large complex loculated ring-enhancing fluid collection at posterior laminotomy/laminectomy site at L4-L5 measuring 3.6 x 3.9 x 5.6 cm (transverse by anterior posterior by craniocaudal). This fluid jayy ection extends through the deep muscular fascia into subcutaneous tissues in midline measuring 3.0 x 1.5 x 9.1 cm (transverse by anterior posterior by craniocaudal). This extends from the top of L3 through the bottom of L5. Patient is status post remote global fusion at L5-S1 which is probably solid and not involved. L1-L2, L2-L3 and L3-L4 levels are unremarkable. IMPRESSION: 1. Findings most compatible with infected cage/graft at L4-L5 with interspace abscess. There is adjacent osteomyelitis involving L4 and L5 vertebral bodies. Infection tracks along pedicle screws with la rge posterior paraspinal abscess at laminectomy sites tracking through the subcutaneous tissues as described above. I suspect a 10 mm epidural abscess left lateral epidural space at L4-L5. Arachnoiditis /meningitis involving lower thoracic cord/conus and cauda equina noted. Chest 1 v Chest 1 v EXAM: CHEST 1 [facility] [place] Pl[facility] Placement DX DX DATE: 07/03/2016 9:39 PM CDT Read by: Byron Kaur MD Dictated Date/time: 07/03/16 22:35 Electronically Signed by: Byron Kaur MD 07/03/16 22:37 FINAL REPORT INDICATION: PICC Line Placement COMPARISON: None. FINDINGS: Right PICC line is in place, tip projecting over the superior vena cava. Heart size is normal. Pulmonary vasculature is normal. Lungs are clear. No destructive osseous lesions are identified. IMPRESSIONS: Status post right PICC line placement TOXICOLOGY Vanco Tr TND 0000 07/01 Ortho and Spine TOXICOLOGY Vanco Tr 8.9 ug/ml 07/01 and Spine CHEM PANEL eGFR 100 06/30 Result Comment: The eGFR is calculated using the CKD-EPI formula. In most young, healthy individuals the eGFR will be >90 mL/ min/1.73m2. The eGFR declines with age. An eGFR of 60-89 may be normal in Ortho mL/min/1. some populations, particularly the elderly, for whom the CKD-EPI formula has not been extensively validated. Use of the eGFR is not recommended in the following populations: and Spine 3m2 Individuals with unstable creatinine concentrations, including patients and those with serious co-morbid conditions. Patients with extremes in muscle mass or diet. The data above are obtained from the National Kidney Disease Education Program (NKDEP) which additionally recommends that when the eGFR is used in patients with extremes of body mass index for purposes of drug dosing, the eGFR should be multiplied by the estimated BMI. CHEM PANEL Chloride Lvl 95 meq/L 95 - 109 06/30 Ortho and Spine CHEM PANEL Calcium Lvl 8.4 mg/dL 8.5 - 10.5 06/30 Ortho and Spine CHEM PANEL CO2 30 meq/L 24 - 32 06/30 Ortho and Spine CHEM PANEL Potassium 3.5 meq/L 3.5 - 5.1 06/30 Ortho Lvl and Spine CHEM PANEL Glucose Lvl 95 mg/dL 70 - 99 06/30 and Spine CHEM PANEL BUN 9 mg/dL 7 - 22 06/30 and Spine CHEM PANEL Sodium Lvl 132 meq/L 135 - 145 06/30 and Spine CHEM PANEL Creatinine 0.86 mg/dL 0.50 - 06/30 Ortho Lvl 1.40 and Spine CHEM PANEL AGAP 10.5 meq/L 10.0 - 06/30 Ortho 20.0 and Spine HEMATOLOGY Monocytes # 1.3 K/CMM 0.0 - 0.8 06/30 Ortho and Spine HEMATOLOGY Basophils # 0.0 K/CMM 0.0 - 0.2 06/30 and Spine HEMATOLOGY Eosinophils 0.4 K/CMM 0.0 - 0.5 06/30 Ortho and Spine HEMATOLOGY Monocytes 9.8 % 2.0 - 12.0 06/30 Ortho and Spine HEMATOLOGY Basophils 0.2 % 0.0 - 1.0 06/30 Ortho and Spine HEMATOLOGY Lymphocytes 1.7 K/CMM 1.0 - 5.5 06/30 Ortho and Spine HEMATOLOGY Segs-Bands # 9.6 K/CMM 1.5 - 8.1 06/30 and Spine HEMATOLOGY Segs 74.4 % 45.0 - 06/30 Ortho 75.0 2016 and Spine HEMATOLOGY Lymphocytes 12.8 % 20.0 - 06/30 Ortho 40.0 2016 and Spine HEMATOLOGY Eosinophils 2.8 % 0.0 - 4.0 06/30 Ortho and Spine HEMATOLOGY MCV 94.8 fL 80.0 - 06/30 Ortho 94.0 /2016 and Spine HEMATOLOGY Hgb 10.3 g/dL 14.0 - 06/30 Ortho 18.0 /2015 and Spine HEMATOLOGY MCH 31.2 pg 27.0 - 06/30 Ortho 31.0 2016 and Spine HEMATOLOGY Platelet 257 K/CMM 133 - 450 06/30 Ortho /2015 and Spine HEMATOLOGY Hct 31.3 % 42.0 - 06/30 Ortho 54.0 /2015 and Spine HEMATOLOGY MCHC 32.9 g/dL 32.0 - 06/30 Ortho 36.0 /2015 and Spine HEMATOLOGY RDW 12.9 % 11.5 - 06/30 Ortho 14.5 /2015 and Spine HEMATOLOGY MPV 9.3 fL 7.4 - 10.4 06/30 Ortho and Spine HEMATOLOGY WBC X 10x3 12.9 K/CMM 3.7 - 10.4 06/30 Ortho and Spine HEMATOLOGY RBC X 10x6 3.30 M/CMM 4.70 - 06/30 Ortho 6.10 /2015 and Spine Chest 1 v Chest 1 v EXAM: CHEST 1 VIEW 06/28 - [facility] [place] Placement Placement DX DX DATE: 06/28/2016 8:53 PM CDT Read by: Byron Kaur MD Dictated Date/time: 06/30/16 10:34 Electronically Signed by: Byron Kaur MD 06/30/16 10:35 FINAL REPORT INDICATION: PICC Line Placement COMPARISON: None. FINDINGS: Right PICC line is in place, tip projecting over the superior vena cava. Heart size is normal. Pulmonary vasculature is normal. Lungs are clear. No destructive osseous lesions are identified. IMPRESSIONS: Status post right PICC line placement CHEM PANEL eGFR 107 06/28 Result Comment: The eGFR is calculated using the CKD-EPI formula. In most young, healthy individuals the eGFR will be >90 mL/ min/1.73m2. The eGFR declines with age. An eGFR of 60-89 may be normal in Ortho mL/min/1.7 /2016 some populations, particularly the elderly, for whom the CKD-EPI formula has not been extensively validated. Use of the eGFR is not recommended in the following populations: and Spine 3m2 Individuals with unstable creatinine concentrations, including patients and those with serious co-morbid conditions. Patients with extremes in muscle mass or diet. The data above are obtained from the National Kidney Disease Education Program (NKDEP) which additionally recommends that when the eGFR is used in patients with extremes of body mass index for purposes of drug dosing, the eGFR should be multiplied by the estimated BMI. CHEM PANEL Creatinine 0.73 mg/dL 0.50 - 06/28 Ortho Lvl 1.40 /2015 and Spine CHEM PANEL Sodium Lvl 130 meq/L 135 - 145 06/28 Ortho and Spine CHEM PANEL BUN 10 mg/dL 7 - 22 06/28 Ortho and Spine CHEM PANEL Potassium 3.9 meq/L 3.5 - 5.1 06/28 Ortho Lvl /2015 and Spine CHEM PANEL Chloride Lvl 95 meq/L 95 - 109 06/28 and Spine CHEM PANEL Glucose Lvl 102 mg/dL 70 - 99 06/28 and Spine CHEM PANEL Calcium Lvl 8.7 mg/dL 8.5 - 10.5 06/28 Ortho and Spine CHEM PANEL CO2 30 meq/L 24 - 32 06/28 Ortho and Spine CHEM PANEL AGAP 8.9 meq/L 10.0 - 06/28 Ortho 20.0 and Spine HEMATOLOGY Segs 64.3 % 45.0 - 06/28 Ortho 75.0 /2015 and Spine HEMATOLOGY Eosinophils 0.8 % 0.0 - 4.0 06/28 Ortho and Spine HEMATOLOGY Monocytes 23.5 % 2.0 - 12.0 06/28 Ortho and Spine HEMATOLOGY Basophils 0.0 % 0.0 - 1.0 06/28 Ortho and Spine HEMATOLOGY Lymphocytes 11.4 % 20.0 - 06/28 Ortho 40.0 /2015 and Spine HEMATOLOGY WBC X 10x3 7.1 K/CMM 3.7 - 10.4 06/28 Ortho and Spine HEMATOLOGY Hgb 11.1 g/dL 14.0 - 06/28 Ortho 18.0 /2015 and Spine HEMATOLOGY RBC X 10x6 3.55 M/CMM 4.70 - 06/28 Ortho 6.10 /2016 and Spine HEMATOLOGY Hct 33.1 % 42.0 - 06/28 Ortho 54.0 /2016 and Spine HEMATOLOGY MPV 9.7 fL 7.4 - 10.4 06/28 Ortho and Spine HEMATOLOGY RDW 12.9 % 11.5 - 06/28 Ortho 14.5 /2015 and Spine HEMATOLOGY MCV 93.2 fL 80.0 - 06/28 Ortho 94.0 /2016 and Spine HEMATOLOGY Platelet 189 K/CMM 133 - 450 06/28 Ortho and Spine HEMATOLOGY MCHC 33.5 g/dL 32.0 - 08/27 Ortho 36.0 and Spine HEMATOLOGY MCH 31.3 pg 27.0 - 06/28 Ortho 31.0 and Spine HEMATOLOGY Sed Rate >100 mm/hr 0 - 15 06/27 [facility]o and Spine IMMUNOLOGY C-REACTIVE 199.0 mg/L <=2.9 mg/L 06/27 Ortho PROTEIN and Spine CHEM PANEL A/G Ratio 0.6 0.7 - 1.6 06/26 [facility] Ortho and Spine CHEM PANEL B/C Ratio 15 6 - 25 06/26 [facility] Ortho and Spine CHEM PANEL Globulin 4.2 g/dL 2.7 - 4.2 06/26 Ortho and Spine CHEM PANEL AGAP 13.9 meq/L 10.0 - 06/26 Ortho 20.0 and Spine CHEM PANEL eGFR 93 06/26 Result Comment: The eGFR is calculated using the CKD-EPI formula. In most young, healthy individuals the eGFR will be >90 mL/ min/1.73m2. The eGFR declines with age. An eGFR of 60-89 may be normal in Ortho mL/min/1.7 /2015 some populations, particularly the elderly, for whom the CKD-EPI formula has not been extensively validated. Use of the eGFR is not recommended in the following populations: and Spine 3m2 Individuals with unstable creatinine concentrations, including patients and those with serious co-morbid conditions. Patients with extremes in muscle mass or diet. The data above are obtained from the National Kidney Disease Education Program (NKDEP) which additionally recommends that when the eGFR is used in patients with extremes of body mass index for purposes of drug dosing, the eGFR should be multiplied by the estimated BMI. CHEM PANEL ALANINE 29 unit/L 0 - 65 06/26 Ortho AMINOTRANSFE and Spine RASE CHEM PANEL Total 6.8 g/dL 6.4 - 8.4 06/26 Ortho Protein and Spine CHEM PANEL Calcium Lvl 8.7 mg/dL 8.5 - 10.5 06/26 [facility]o and Spine CHEM PANEL CO2 24 meq/L 24 - 32 06/26 [facility] Ortho and Spine CHEM PANEL BUN 14 mg/dL 7 - 22 06/26 Ortho and Spine CHEM PANEL Sodium Lvl 131 meq/L 135 - 145 06/26 Ortho and Spine CHEM PANEL Creatinine 0.94 mg/dL 0.50 - 06/26 Ortho Lvl 1.40 /2015 and Spine CHEM PANEL Albumin Lvl 2.6 g/dL 3.5 - 5.0 06/26 Ortho and Spine CHEM PANEL Chloride Lvl 97 meq/L 95 - 109 06/26 and Spine CHEM PANEL Potassium 3.9 meq/L 3.5 - 5.1 06/26 Ortho Lvl /2015 and Spine CHEM PANEL Glucose Lvl 158 mg/dL 70 - 99 06/26 Ortho and Spine CHEM PANEL Bili Total 0.7 mg/dL 0.2 - 1.3 06/26 and Spine CHEM PANEL Alk Phos 98 unit/L 39 - 136 06/26 and Spine CHEM PANEL ASPARTATE 22 unit/L 0 - 37 06/26 Ortho and Spine HEMATOLOGY aPTT 39.1 s 22.9 - 06/26 Ortho 35.8 /2015 and Spine HEMATOLOGY PROTIME 13.3 s 12.0 - 06/26 Ortho 14.7 and Spine HEMATOLOGY INR 0.98 0.85 - 06/26 Ortho 1.17 and Spine HEMATOLOGY RDW 13.2 % 11.5 - 06/26 Ortho 14.5 /2015 and Spine HEMATOLOGY MCH 33.1 pg 27.0 - 06/26 Ortho 31.0 /2015 and Spine HEMATOLOGY MCHC 35.1 g/dL 32.0 - 06/26 Ortho 36.0 /2015 and Spine HEMATOLOGY Hct 32.5 % 42.0 - 06/26 Ortho 54.0 /2015 and Spine HEMATOLOGY MCV 94.5 fL 80.0 - 06/26 Ortho 94.0 /2016 and Spine HEMATOLOGY RBC X 10x6 3.44 M/CMM 4.70 - 06/26 Ortho 6.10 /2015 and Spine HEMATOLOGY Hgb 11.4 g/dL 14.0 - 06/26 Ortho 18.0 /2015 and Spine HEMATOLOGY WBC X 10x3 8.4 K/CMM 3.7 - 10.4 06/26 Ortho and Spine HEMATOLOGY MPV 9.9 fL 7.4 - 10.4 06/26 Ortho and Spine HEMATOLOGY Platelet 164 K/CMM 133 - 450 06/26 Ortho and Spine HEMATOLOGY Eosinophils 0.0 K/CMM 0.0 - 0.5 06/26 Ortho # /2016 and Spine HEMATOLOGY Monocytes # 0.8 K/CMM 0.0 - 0.8 06/26 Ortho and Spine HEMATOLOGY Basophils # 0.0 K/CMM 0.0 - 0.2 06/26 Ortho and Spine HEMATOLOGY Lymphocytes 4.7 % 20.0 - 06/26 Ortho 40.0 /2016 and Spine HEMATOLOGY Segs 85.7 % 45.0 - 06/26 Ortho 75.0 /2016 and Spine HEMATOLOGY Eosinophils 0.1 % 0.0 - 4.0 06/26 [facility]o and Spine HEMATOLOGY Monocytes 9.4 % 2.0 - 12.0 06/26 Ortho and Spine HEMATOLOGY Basophils 0.1 % 0.0 - 1.0 06/26 Ortho and Spine HEMATOLOGY Lymphocytes 0.4 K/CMM 1.0 - 5.5 06/26 Ortho # /2016 and Spine HEMATOLOGY Segs-Bands # 7.2 K/CMM 1.5 - 8.1 06/26 Ortho and Spine URINE AND UA Nitrite Negative Negative 06/26 Ortho STOOL and Spine (06/25/16 11:32 PM) URINE AND UA Blood Small Negative 06/26 Ortho STOOL and Spine *ABN* (06/25/16 11:32 PM) URINE AND UA Leuk Est Negative Negative 06/26 Ortho STOOL and Spine (06/25/16 11:32 PM) URINE AND UA Sq Epi Rare /LPF Few /LPF 06/26 Ortho STOOL and Spine URINE AND UA 0.2 EU/dL 0.1 - 1.0 06/26 Ortho STOOL Urobilinogen /2015 and Spine URINE AND UA Bacteria Few /HPF None Seen 06/26 Ortho STOOL /HPF /2015 and Spine URINE AND UA Amorph Occasional None Seen 06/26 Ortho STOOL [place] /HPF /HPF /2015 and Spine URINE AND UA RBC 0-2 /HPF 0 - 2 06/26 Ortho STOOL and Spine URINE AND UA WBC 0-2 /HPF None Seen 06/26 Ortho STOOL /HPF /2015 and Spine URINE AND UA Color Yellow Yellow 06/26 Ortho STOOL and Spine *NA* (06/25/16 11:32 PM) URINE AND UA Turbidity Clear Clear 06/26 Ortho STOOL and Spine (06/25/16 11:32 PM) URINE AND UA Spec Grav >=1.030 <=1.030 06/26 Ortho STOOL and Spine *ABN* (06/25/16 11:32 PM) URINE AND UA Protein 100 mg/dL Negative 06/26 Ortho STOOL mg/dL and Spine URINE AND UA pH 6.0 5.0 - 8.0 06/26 Ortho STOOL and Spine URINE AND UA Bili Negative Negative 06/26 Ortho STOOL and Spine *NA* (06/25/16 11:32 PM) URINE AND UA Ketones >=80 mg/dL Negative 06/26 Ortho STOOL mg/dL and Spine URINE AND UA Glucose Negative Negative 06/26 Ortho STOOL and Spine (06/25/16 11:32 PM) Spine Spine lumbar EXAM: MRI LUMBAR SPINE 04/22 - [facility] wo - [place] contrast MRI MRI DATE: 04/22/2016 11:40 AM CDT Read by: Hi Leyva MD Dictated Date/time: 04/22/16 15:03 Electronically Signed by: Hi Leyva MD 04/22/16 15:07 FINAL REPORT INDICATION: other intervertebral disc degeneration, lumbar region. Other intervertebral disc displacement, lumbar region. TECHNIQUE: Multiplanar multisequence MRI examination of the lumbar spine was performed. FINDINGS: For the purpose of this examination there are considered to be 5 lumbar type vertebral bodies. Lumbar spine alignment is notable for mild levoscoliosis. No fractures or destructive osseous lesions are s een. Marrow signal is unremarkable. The L1-L4 intervertebral discs demonstrate normal height and hydration. The L4-L5 intervertebral disc is moderately diminished in height and moderately desiccated. An terior interbody fusion is present at the L5-S1 level. Posterior instrumentation has been removed from this level. Conus medullaris terminates at the T12-L1 level. FINDINGS AT SPECIFIC LEVELS: L5-S1: Status post anterior interbody fusion. Subarachnoid space is patent. Bilateral neural foramina are patent. L4-L5: Left posterolateral disc extrusion is present. The extruded disc fragment measures 8mm in anteroposterior dimension, 10 mm in transverse dimension, with 7 mm cranial migration of disc material. T he extruded disc material exerts moderate mass effect on the left anterior aspect of thecal sac, severely attenuating the left lateral recess. Bilateral neural foramina remain patent. [id number] bilateral facet arthropathy is seen. L3-L4: Significant disc bulge or protrusion is not seen. Central canal and bilateral neural foramina remain patent. Very mild bilateral facet arthrosis is evident. L2-L3: Significant disc bulge or protrusion is not seen. Central canal and bilateral neural foramina remain patent. Very mild bilateral facet arthrosis is evident. L1-L2: Significant disc bulge or protrusion is not seen. Central canal and bilateral neural foramina remain patent. Very mild bilateral facet arthrosis is evident. IMPRESSION: 1. Large left posterolateral disc extrusion at the L4-L5 level, detailed above. 2. Status post fusion at the L5-S1 level. 3. Multiple level bilateral lumbar facet arthrosis, detailed at specific levels above. 4. Mild lumbar levoscoliosis. Vital Signs Vital Sign Value Date Comments Source Respitory Rate 18 08/14/2016 [facility] Systolic (mm Hg) 108 08/14/2016 [facility] Diastolic (mm Hg) 71 08/14/2016 [facility] Heart Rate 85 08/14/2016 [facility] Temperature Oral (F) 98.0 F 08/14/2016 [facility] Heart Rate 96 08/14/2016 [facility] Systolic (mm Hg) 120 08/14/2016 [facility] Diastolic (mm Hg) 74 08/14/2016 [facility] Respitory Rate 18 08/14/2016 [facility] Temperature Oral (F) 98.6 F 08/14/2016 [facility] Temperature Oral (F) 98.7 F 08/14/2016 [facility] Heart Rate 103 08/14/2016 [facility] Systolic (mm Hg) 122 08/14/2016 [facility] Diastolic (mm Hg) 87 08/14/2016 [facility] Respitory Rate 18 08/14/2016 [facility] BMI Calculated 26.73 08/12/2016 [facility] Weight 97 08/12/2016 [facility] Height 190.5 cm 08/12/2016 [facility] Systolic (mm Hg) 131 07/15/2016 [facility] Diastolic (mm Hg) 91 07/15/2016 [facility] Respitory Rate 18 07/15/2016 [facility] Temperature Oral (F) 97.6 F 07/15/2016 [facility] Heart Rate 99 07/15/2016 [facility] Systolic (mm Hg) 105 07/15/2016 [facility] Diastolic (mm Hg) 65 07/15/2016 [facility] Respitory Rate 18 07/15/2016 [facility] Temperature Oral (F) 98.5 F 07/15/2016 [facility] Heart Rate 82 07/15/2016 [facility] Systolic (mm Hg) 124 07/15/2016 [facility] Diastolic (mm Hg) 70 07/15/2016 [facility] Respitory Rate 18 07/15/2016 [facility] Heart Rate 84 07/15/2016 [facility] Temperature Oral (F) 98.1 F 07/15/2016 [facility] Weight 97 07/12/2016 [facility] BMI Calculated 26.73 07/12/2016 [facility] Height 190.5 cm 07/12/2016 [facility] Weight 97 07/12/2016 [facility] Weight 97 07/12/2016 [facility] Systolic (mm Hg) 141 07/12/2016 [facility] Diastolic (mm Hg) 85 07/12/2016 [facility] Respitory Rate 15 07/12/2016 [facility] Respitory Rate 21 07/12/2016 [facility] Systolic (mm Hg) 131 07/12/2016 [facility] Diastolic (mm Hg) 90 07/12/2016 [facility] Respitory Rate 12 07/12/2016 [facility] Systolic (mm Hg) 132 07/12/2016 [facility] Diastolic (mm Hg) 90 07/12/2016 [facility] Temperature Oral (F) 97.3 F 07/11/2016 [facility] Heart Rate 88 07/10/2016 [facility] Heart Rate 87 07/10/2016 [facility] Weight 97.727 07/08/2016 [facility] Height 190.5 cm 07/08/2016 [facility] BMI Calculated 26.93 07/08/2016 [facility] Weight 97.727 07/08/2016 [facility] Height 190.5 cm 07/08/2016 [facility] Systolic (mm Hg) 119 07/08/2016 [facility] Diastolic (mm Hg) 82 07/08/2016 [facility] Heart Rate 108 07/08/2016 [facility] Respitory Rate 20 07/08/2016 [facility] Temperature Oral (F) 99 F 07/08/2016 [facility] Heart Rate 91 07/08/2016 [facility] Systolic (mm Hg) 138 07/08/2016 [facility] Diastolic (mm Hg) 88 07/08/2016 [facility] Respitory Rate 20 07/08/2016 [facility] Temperature Oral (F) 101 F 07/08/2016 [facility] Temperature Oral (F) 98.1 F 07/08/2016 [facility] Heart Rate 86 07/08/2016 [facility] Respitory Rate 17 07/08/2016 [facility] Systolic (mm Hg) 161 07/08/2016 [facility] Diastolic (mm Hg) 85 07/08/2016 [facility] Weight 102.273 07/04/2016 [facility] BMI Calculated 28.18 07/04/2016 [facility] Height 190.5 cm 07/04/2016 [facility] Systolic (mm Hg) 124 07/02/2016 [facility] Diastolic (mm Hg) 74 07/02/2016 [facility] Respitory Rate 18 07/02/2016 [facility] Heart Rate 104 07/02/2016 [facility] Temperature Oral (F) 97.6 F 07/02/2016 [facility] Respitory Rate 18 07/02/2016 [facility] Temperature Oral (F) 97.6 F 07/02/2016 [facility] Systolic (mm Hg) 127 07/02/2016 [facility] Diastolic (mm Hg) 88 07/02/2016 [facility] Heart Rate 93 07/02/2016 [facility] Temperature Oral (F) 98.3 F 07/02/2016 [facility] Heart Rate 94 07/02/2016 [facility] Respitory Rate 16 07/02/2016 [facility] Systolic (mm Hg) 120 07/02/2016 [facility] Diastolic (mm Hg) 72 07/02/2016 [facility] BMI Calculated 28.18 06/27/2016 [facility] Weight 102.273 06/27/2016 [facility] Height 190.5 cm 06/27/2016 [facility] Weight 102.273 06/26/2016 [facility] BMI Calculated 28.18 06/26/2016 [facility] Height 190.5 cm 06/26/2016 [facility] Encounters Location Location Encounter Encounter Reason Attending ADM DC Status Source Details Type Number For Provider Date Date Visit [facility] Outpatient [id number] 04/22 [facility] [place] [facility] /2015 and [facility] Inpatient [id number] Matias 06/26 07/02 [facility] [place] [facility] /2015 and [facility] Inpatient [id number] Matias 07/04 07/08 [facility] [place] [facility] /2015 and [facility] Inpatient [id number] Toribio 07/08 07/[address] [facility] [place] [place] /2015 [facility] Inpatient [id number] Matias 07/12 07/15 Orth[facility] /2015 and [facility] Inpatient [id number] Matias 08/12 08/14 Orth[facility] /2015 and [facility] Procedures Procedure Code Date Perfomer Comments Source Lumbar spinal [id number] 06/09/2016 [facility] Lumbar spinal [id number] 06/09/2016 [facility] fusion [facility] Knee replacement [id number] [facility] Rotator cuff [id number] [facility] Knee replacement [id number] [facility] Rotator cuff [id number] [facility]
--- NOTE | 2019-04-14 20:15 | RAD REPORT ---
EXAM DESCRIPTION: RAD - Foot Left 3 View - 04/14/2019 8:01 pm CLINICAL HISTORY: Pain;Deformity Trauma, pain COMPARISON: <Comparisons> FINDINGS: Fracture involves the proximal phalanx of the fourth toe. Moderate soft tissue swelling is evident.
--- NOTE | 2019-04-14 21:35 | ER ---
Nurse's Notes [facility] Name: Duc Becerra Age: 54 yrs Sex: Male : 1965 Arrival Date: 04/14/2019 Time: 19:25 Bed 14 Private MD: Asa Bullock R Diagnosis: Nondisplaced fracture of proximal phalanx of left lesser toe(s) Presentation: 04/14 19:28 Presenting complaint: Patient states: left toe pain, deformity noted in triage. pt ak1 stated he "kicked the couch" at 1900. Transition of care: patient was not received from another setting of care. Onset of symptoms was April 14, 2019. Risk Assessment: Do you want to hurt yourself or someone else? Patient reports no desire to harm self or others. Initial Sepsis Screen: Does the patient meet any 2 criteria? No. Patient's initial sepsis screen is negative. Does the patient have a suspected source of infection? No. Patient's initial sepsis screen is negative. Care prior to arrival: None. 19:28 Acuity: DARRIN 4 ak1 19:28 Method Of Arrival: Ambulatory ak1 Triage Assessment: 19:30 General: Appears in no apparent distress. Behavior is calm, cooperative. Pain: ak1 Complains of pain in left foot. EENT: No signs and/or symptoms were reported regarding the EENT system. Neuro: No deficits noted. Cardiovascular: No deficits noted. Respiratory: No deficits noted. GI: No signs and/or symptoms were reported involving the gastrointestinal system. : No signs and/or symptoms were reported regarding the genitourinary system. Derm: No signs and/or symptoms reported regarding the dermatologic system. Musculoskeletal: dislocation noted to left 3rd toe. Historical: - Allergies: 19:30 No Known Allergies; ak1 - Home Meds: 19:30 Lotrel Oral [Active]; ak1 - PMHx: 19:30 Hypertension; Hyperlipidemia; Depression; ak1 - PSHx: 19:30 back sx; ak1 - Immunization history:: Adult Immunizations unknown. - Social history:: Smoking status: Patient/guardian denies using tobacco. - Ebola Screening: : No symptoms or risks identified at this time. Screenin:20 Abuse screen: Denies threats or abuse. Nutritional screening: No deficits noted. jb4 Tuberculosis screening: No symptoms or risk factors identified. Fall Risk None identified. Assessment: 21:20 General: Appears in no apparent distress. uncomfortable, Behavior is calm, cooperative, jb4 appropriate for age. Pain: Complains of pain in left fourth toe Pain does not radiate. Pain currently is 7 out of 10 on a pain scale. Quality of pain is described as burning. Neuro: Level of Consciousness is awake, alert, obeys commands, Oriented to person, place, time, situation. Cardiovascular: Patient's skin is warm and dry. Respiratory: Airway is patent Respiratory effort is even, unlabored, Respiratory pattern is regular, symmetrical. GI: No signs and/or symptoms were reported involving the gastrointestinal system. : No signs and/or symptoms were reported regarding the genitourinary system. EENT: No signs and/or symptoms were reported regarding the EENT system. Derm: Skin is intact, Skin is pink, warm \\T\\ dry. Musculoskeletal: Circulation, motion, and sensation intact. 21:34 Reassessment: Pedal pulse 3+, cap refill <3sec's after dar taping of 3'rd and 4th jb4 left toes and post op shoe on left foot. 21:59 Reassessment: Patient appears in no apparent distress at this time. Patient is alert, jb4 oriented x 3, equal unlabored respirations, skin warm/dry/pink. PT left ambulated out of ED with steady gate. denies questions or concerns, verbalized understanding of d/c and follow up instructions. Vital Signs: 19:27 BP 140 / 91; Pulse 93; Resp 16; Temp 97.6; Pulse Ox 98% on R/A; Weight 115.67 kg (R); ak1 Height 6 ft. 3 in. (190.50 cm) (R); Pain 7/10; 21:59 BP 123 / 93; Pulse 82; Resp 16; Pulse Ox 100% on R/A; jb4 19:27 Body Mass Index 31.87 (115.67 kg, 190.50 cm) ak1 ED Course: 19:25 Patient arrived in ED. am2 19:26 Asa Bullock MD is Private Physician. am2 19:27 Arm band placed on Patient placed in waiting room, Patient notified of wait time. X-ray ak1 ordered. 19:29 Triage completed. ak1 20:01 XRAY Foot LEFT 3 View In Process Unspecified. EDMS 20:08 [facility] Kitchen [facility]C [facility] snw 20:08 Darrin Rodriguez MD is Attending Physician. snw 21:20 Patient has correct armband on for positive identification. Bed in low position. Call jb4 light in reach. Side rails up X 1. Pulse ox on. NIBP on. 21:29 Asa Bullock MD is Referral Physician. snw 21:31 Wilfred Saucedo, RN is Primary Nurse. jb4 21:59 No provider procedures requiring assistance completed. Patient did not have IV access jb4 during this emergency room visit. Administered Medications: No medications were administered Outcome: 21:34 Discharge ordered by . snw 21:59 Discharged to home ambulatory. jb4 21:59 Condition: stable 21:59 Discharge instructions given to patient, Instructed on discharge instructions, follow up and referral plans. medication usage, Demonstrated understanding of instructions, follow-up care, medications, Prescriptions given X 1. 22:00 Patient left the ED. jb4 Signatures: Dispatcher [employer] EDKS Nakia Kitchen FNP-C BATON TWIRLER-Csnw Michela Bal RN RN ak1 Wilfred Saucedo, RN RN jb4 Elba Love
--- NOTE | 2019-04-14 21:35 | EDPHYS ---
Physician Documentation [facility] Name: Duc Becerra Age: 54 yrs Sex: Male : 1965 Arrival Date: 04/14/2019 Time: 19:25 Bed 14 Private MD: Asa Bullock R ED Physician Darrin Rodriguez HPI: 04/14 21:38 This 54 yrs old Male presents to ER via Ambulatory with complaints of Toe snw Injury. 21:38 The patient presents with decreased range of motion, a deformity, an injury. The snw complaints affect the left foot. Context: pt accidentally kicked couch as he went to lie down. Onset: The symptoms/episode began/occurred suddenly, just prior to arrival. Associated signs and symptoms: The patient has no apparent associated signs or symptoms. Severity of symptoms: At their worst the symptoms were moderate. The patient has not experienced similar symptoms in the past. seen recently, scheduled for stress test Thursday. Historical: - Allergies: 19:30 No Known Allergies; ak1 - Home Meds: 19:30 Lotrel Oral [Active]; ak1 - PMHx: 19:30 Hypertension; Hyperlipidemia; Depression; ak1 - PSHx: 19:30 back sx; ak1 - Immunization history:: Adult Immunizations unknown. - Social history:: Smoking status: Patient/guardian denies using tobacco. - Ebola Screening: : No symptoms or risks identified at this time. ROS: 21:38 Constitutional: Negative for fever, chills, and weight loss, Eyes: Negative for injury, snw pain, redness, and discharge, ENT: Negative for injury, pain, and discharge, Neck: Negative for injury, pain, and swelling, Cardiovascular: Negative for chest pain, palpitations, and edema, Respiratory: Negative for shortness of breath, cough, wheezing, and pleuritic chest pain, Abdomen/GI: Negative for abdominal pain, nausea, vomiting, diarrhea, and constipation, Back: Negative for injury and pain, : Negative for injury, bleeding, discharge, and swelling, Skin: Negative for injury, rash, and discoloration, Neuro: Negative for headache, weakness, numbness, tingling, and seizure. 21:38 MS/extremity: Positive for injury or acute deformity, decreased range of motion, pain, swelling, tenderness, of the left fourth toe. Exam: 21:36 Constitutional: This is a well developed, well nourished patient who is awake, alert, snw and in no acute distress. Head/Face: Normocephalic, atraumatic. Eyes: Pupils equal round and reactive to light, extra-ocular motions intact. Lids and lashes normal. Conjunctiva and sclera are non-icteric and not injected. Cornea within normal limits. Periorbital areas with no swelling, redness, or edema. ENT: Nares patent. No nasal discharge, no septal abnormalities noted. Tympanic membranes are normal and external auditory canals are clear. Oropharynx with no redness, swelling, or masses, exudates, or evidence of obstruction, uvula midline. Mucous membranes moist. Neck: Trachea midline, no thyromegaly or masses palpated, and no cervical lymphadenopathy. Supple, full range of motion without nuchal rigidity, or vertebral point tenderness. No Meningismus. Chest/axilla: Normal chest wall appearance and motion. Nontender with no deformity. No lesions are appreciated. Cardiovascular: Regular rate and rhythm with a normal S1 and S2. No gallops, murmurs, or rubs. Normal PMI, no JVD. No pulse deficits. Respiratory: Lungs have equal breath sounds bilaterally, clear to auscultation and percussion. No rales, rhonchi or wheezes noted. No increased work of breathing, no retractions or nasal flaring. Abdomen/GI: Soft, non-tender, with normal bowel sounds. No distension or tympany. No guarding or rebound. No evidence of tenderness throughout. Back: No spinal tenderness. No costovertebral tenderness. Full range of motion. Skin: Warm, dry with normal turgor. Normal color with no rashes, no lesions, and no evidence of cellulitis. Neuro: Awake and alert, GCS 15, oriented to person, place, time, and situation. Cranial nerves II-XII grossly intact. Motor strength 5/5 in all extremities. Sensory grossly intact. Cerebellar exam normal. Normal gait. Psych: Awake, alert, with orientation to person, place and time. Behavior, mood, and affect are within normal limits. 21:36 Musculoskeletal/extremity: Extremities: grossly normal except: noted in the left fourth toe: decreased ROM, deformity, swelling, tenderness, ROM: no acute changes, Circulation is intact in all extremities. numbness, hx of neuropathy Vital Signs: 19:27 BP 140 / 91; Pulse 93; Resp 16; Temp 97.6; Pulse Ox 98% on R/A; Weight 115.67 kg (R); ak1 Height 6 ft. 3 in. (190.50 cm) (R); Pain 7/10; 21:59 BP 123 / 93; Pulse 82; Resp 16; Pulse Ox 100% on R/A; jb4 19:27 Body Mass Index 31.87 (115.67 kg, 190.50 cm) ak1 MDM: 21:18 Patient medically screened. snw 21:37 Data reviewed: vital signs, nurses notes. Data interpreted: Pulse oximetry: on room air snw is 98 %. Interpretation: normal. Counseling: I had a detailed discussion with the patient and/or guardian regarding: the historical points, exam findings, and any diagnostic results supporting the discharge/admit diagnosis, radiology results, the need for outpatient follow up, to return to the emergency department if symptoms worsen or persist or if there are any questions or concerns that arise at home. Special discussion: I have referred the patient to see his PCP for further evaluation of high blood pressure. Based on the history and exam findings, there is no indication for further emergent testing or inpatient evaluation. I discussed with the patient/guardian the need to see the orthopedic surgeon for further evaluation of the symptoms. I discussed with the patient/guardian the need to see the business operations specialist for further evaluation of the symptoms. I discussed with the patient/guardian the need to see the primary care provider for further evaluation of the symptoms. 04/14 19:27 Order name: XRAY Foot LEFT 3 View; Complete Time: 20:28 ak1 04/14 20:31 Order name: Misc. Order: small gauze roll between left 3rd/4th toe with dar taping; snw Complete Time: 21:32 04/14 20:31 Order name: Post-op shoe; Complete Time: 21:32 snw Administered Medications: No medications were administered Disposition: 04/15 01:39 Co-signature as Attending Physician, Darrin Rodriguez MD. Disposition: 04/14/19 21:34 Discharged to Home. Impression: Nondisplaced fracture of proximal phalanx of left lesser toe(s). - Condition is Stable. - Discharge Instructions: Cast or Splint Care, Adult, RICE for Routine Care of Injuries, Toe Fracture. - Prescriptions for Tylenol- Codeine #3 300-30 mg Oral Tablet - take 2 tablets by ORAL route every 6 hours As needed; 14 tablet. - Medication Reconciliation Form, Thank You Letter, Antibiotic Education, Prescription Opioid Use form. - Follow up: Asa Bullock MD; When: 2 - 3 days; Reason: Recheck today's complaints, Continuance of care, Re-evaluation by your physician. Signatures: Dispatcher [employer] EDMS Nakia Kitchen, ADJ[employer]CT PSYCHOLOGY FACULTY MEMBER-C [employer]CT PSYCHOLOGY FACULTY MEMBER-Csnw Michela Bal RN RN ak1 Wilfred Saucedo RN RN jb4 Darrin Rodriguez MD MD gs Corrections: (The following items were deleted from the chart) 04/14 22:00 21:34 04/14/2019 21:34 Discharged to Home. Impression: Nondisplaced fracture of jb4 proximal phalanx of left lesser toe(s). Condition is Stable. Forms are Medication Reconciliation Form, Thank You Letter, Antibiotic Education, Prescription Opioid Use. Follow up: Asa Bullock; When: 2 - 3 days; Reason: Recheck today's complaints, Continuance of care, Re-evaluation by your physician. snw
== END 2019-04-14 22:00 | disposition home or self-care (01) ==
LOC: ER 19:17
DX: S92.515A Nondisplaced fracture of proximal phalanx of left lesser toe(s), initial encounter for closed fracture (principal); W22.03XA Walked into furniture, initial encounter; Y93.89 Activity, other specified; I10 Essential (primary) hypertension; F32.9 Major depressive disorder, single episode, unspecified
CPT/HCPCS: 99283